=== PATIENT | female | born 1985 | race Caucasian/White ===

== ENCOUNTER 2017-12-16 18:41 | Emergency (ER) | payer SELFPAY ==
[~2017-12-16] VITALS: Ht 167.6 cm; Wt 84.4 kg
[~2017-12-16 18:41] MED LIST: FOLI1TAB4 PO; LORA-392 PO; PROT40TA PO; VITA100T2 PO
[2017-12-16 19:10] VITALS: BP 144/90; PULSE 137; RESP 20; TEMP 98; O2SAT 98
--- NOTE | 2017-12-16 20:43 | PD ---
HPI Chief Complaint: General Weakness Time Seen by Provider: 20:24 Travel History International Travel<30 days: No Contact w/Intl Traveler<30days: No Traveled to known affect area: No History of Present Illness HPI 32yo F with PMH of alcohol abuse, substance induced mood disorder here with c/o pain in her entire body for a few days. Said she can feel me touching her but feels numb all over her body. +Cough. Denies any fever,chest pain, sob, n/v, abdominal pain, focal weakness or numbness. Pt has some old bruises in bilateral lower extremity but does not remember falling. Pt has normal muscle strength and sensation on exam. Said last drank alcohol this morning. PFSH Past Medical History Anxiety: Yes Depression: Yes Cancer: No Cardiovascular Problems: No Diminished Hearing: No Endocrine: No Gastrointestinal Disorders: No Genitourinary: No Immune Disorder: No Musculoskeletal: No Neurologic: No Psychiatric: Yes Reproductive: No Respiratory: No Immunizations Current: No Tetanus Vaccination: < 5 Years Influenza Vaccination: No ?: Not LMP: 12/11/17 Menopausal: No : 0 Ovarian Cysts: Yes Past Surgical History Oral Surgery: Yes (wisdom teeth) Other Surgery: Yes (breast implants) Social History Alcohol Use: Yes (4 times a week ) Tobacco Use: Yes (1/2 pack a day ) Substance Use: Yes (Pot) Allergies-Medications (Allergen,Severity, Reaction): Coded Allergies: No Known Allergies (Verified , 09/28/16) Reported Meds & Prescriptions Reported Meds & Active Scripts Active Tylenol (Acetaminophen) 325 Mg Tab 650 Mg PO Q6H PRN Bactrim DS (Sulfamethoxazole-Trimethoprim) 800-160 Mg Tab 1 Tab PO BID Ativan (Lorazepam) 0.5 Mg Tab 0.5 Mg PO BID PRN Folate (Folic Acid) 1 Mg Tab 1 Mg PO DAILY Vitamin B-1 (Thiamine HCl) 100 Mg Tab 100 Mg PO DAILY Protonix (Pantoprazole Sodium) 40 Mg Tab 40 Mg PO DAILY 10 Days Review of Systems Except as stated in HPI: all other systems reviewed are Neg Physical Exam Narrative GENERAL: 32yo F in mild distress. SKIN: Focused skin assessment warm/dry. HEAD: Atraumatic. Normocephalic. EYES: Pupils equal and round. No scleral icterus. No injection or drainage. ENT: No nasal bleeding or discharge. Mucous membranes pink and moist. NECK: Trachea midline. No JVD. CARDIOVASCULAR: Tachycardic in the low 100s. RESPIRATORY: No accessory muscle use. Clear to auscultation. Breath sounds equal bilaterally. GASTROINTESTINAL: Abdomen soft, non-tender, nondistended. No rebound tenderness or guarding. MUSCULOSKELETAL: No obvious deformities. No clubbing. No cyanosis. No edema. Distal pulses intact. Old ecchymoses in bilateral tib/fib. NEUROLOGICAL: Awake and alert. No obvious cranial nerve deficits. Motor grossly within normal limits in all extremities. Sensation equal in all extremities. Normal speech. Data Data Last Documented VS Vital Signs Date Time Temp Pulse Resp B/P (MAP) Pulse Ox O2 Delivery O2 Flow Rate FiO2 12/17/17 00:23 98.2 97 18 125/79 (94) 98 12/16/17 22:55 Room Air Orders Orders Complete Blood Count With Diff (12/16/17 20:35) Basic Metabolic Panel (Bmp) (12/16/17 20:35) Thyroid Stimulating Hormone (12/16/17 20:35) Electrocardiogram (12/16/17 ) Influenzae A/B Antigen (12/16/17 20:35) Chest, Single Ap (12/16/17 ) Urinalysis - C+S If Indicated (12/16/17 20:35) Ed Urine Pregnancytest Poc (12/16/17 20:35) Urine Culture (12/16/17 20:54) Ceftriaxone Inj (Rocephin Inj) (12/16/17 22:45) Ketorolac Inj (Toradol Inj) (12/16/17 22:45) Sodium Chlor 0.9% 1000 Ml Inj (Ns 1000 M (12/16/17 23:00) Blood Glucose (12/16/17 23:32) Ed Discharge Order (12/16/17 23:33) Labs Laboratory Tests Test 12/16/17 20:45 12/16/17 20:54 White Blood Count 5.7 TH/MM3 Red Blood Count 4.87 MIL/MM3 Hemoglobin 15.5 GM/DL Hematocrit 46.0 % Mean Corpuscular Volume 94.6 FL Mean Corpuscular Hemoglobin 31.8 PG Mean Corpuscular Hemoglobin Concent 33.6 % Red Cell Distribution Width 13.9 % Platelet Count 231 TH/MM3 Mean Platelet Volume 7.3 FL Neutrophils (%) (Auto) 78.5 % Lymphocytes (%) (Auto) 17.4 % Monocytes (%) (Auto) 3.1 % Eosinophils (%) (Auto) 0.2 % Basophils (%) (Auto) 0.8 % Neutrophils # (Auto) 4.5 TH/MM3 Lymphocytes # (Auto) 1.0 TH/MM3 Monocytes # (Auto) 0.2 TH/MM3 Eosinophils # (Auto) 0.0 TH/MM3 Basophils # (Auto) 0.0 TH/MM3 CBC Comment DIFF FINAL Differential Comment Blood Urea Nitrogen 11 MG/DL Creatinine 0.62 MG/DL Random Glucose 66 MG/DL Calcium Level 8.7 MG/DL Sodium Level 138 MEQ/L Potassium Level 4.0 MEQ/L Chloride Level 100 MEQ/L Carbon Dioxide Level 23.0 MEQ/L Anion Gap 15 MEQ/L Estimat Glomerular Filtration Rate 112 ML/MIN Thyroid Stimulating Hormone 3rd Gen 1.260 uIU/ML Urine Color YELLOW Urine Turbidity CLOUDY Urine pH 6.0 Urine Specific [place] 1.015 Urine Protein 300 OR GREATER mg/dL Urine Glucose (UA) NEG mg/dL Urine Ketones 80 OR GREATER mg/dL Urine Occult Blood LARGE Urine Nitrite POS Urine Bilirubin NEG Urine Leukocyte Esterase TRACE Urine RBC 0-3 /hpf Urine WBC 3-5 /hpf Urine Squamous Epithelial Cells 0-5 /hpf Urine Bacteria MANY /hpf Urine Mucus MOD /lpf Microscopic Urinalysis Comment CULTURE INDICATED MDM Medical Decision Making Medical Screen Exam Complete: Yes Emergency Medical Condition: Yes Interpretation(s) EKG; NSR 89bpm. Normal axis. No ST segment elevation or depression. TWI V2. Differential Diagnosis Anxiety vs. dehydration vs. influenza vs. pneumonia vs. alcohol withdrawal Narrative Course 32yo F with multiple complaints. Labs reviewed, no leukocytosis. Glucose 66, pt given food. TSH normal. UA showed positive nitrite. +Ketone. Pt's HR was documented at 137bpm at triage but it was in the low 100s when I evaluated the patient. Urine negative. Influenza negative. Pt given ceftriaxone and NS IVF here. Pt reevaluated at bedside and feels better. Feel that pt can do outpatient treatment first but return precautions given. Diagnosis Primary Impression: UTI (urinary tract infection) Qualified Codes: N39.0 - Urinary tract infection, site not specified; R31.9 - Hematuria, unspecified Patient Instructions: General Instructions Departure Forms: Tests/Procedures Additional Instructions: Please follow up with your primary care physician in 2-3 days. Return to the ED if symptoms worsen. Med/Other Pt SpecificInfo: Prescription(s) given Scripts Acetaminophen (Tylenol) 325 Mg Tab 650 MG PO Q6H Y for PAIN SCALE 1 TO 4, #20 TAB 0 Refills Prov: Svitlana Cohen DO 12/16/17 Sulfamethoxazole-Trimethoprim (Bactrim DS) 800-160 Mg Tab 1 TAB PO BID for Infection, #14 TAB 0 Refills Prov: Svitlana Cohen DO 12/16/17 Disposition: 01 DISCHARGE HOME Condition: Stable Svitlana Cohen DO Dec 16, 2017 20:43
[2017-12-16 20:52] VITALS: BP 135/75; PULSE 108; RESP 18; TEMP 98; O2SAT 100
[2017-12-16 21:04] LABS: AUTOMATED NEUTROPHIL # 4.5 TH/MM3 (1.8-7.7); BASOPHIL % 0.8 % (0.0-2.0); EOSINOPHIL % 0.2 % (0.0-4.0); HEMOGLOBIN 15.5 GM/DL (11.6-15.3); LYMPH % 17.4 % (9.0-44.0); MEAN CELL VOLUME 94.6 FL (80.0-100.0); MEAN CORPUSCULAR HEMOGLOBIN 31.8 PG (27.0-34.0); MEAN CORPUSCULAR HGB CONC 33.6 % (32.0-36.0); MEAN PLATELET VOLUME 7.3 FL (7.0-11.0); MONO % 3.1 % (0.0-8.0); MONOCYTE # 0.2 TH/MM3 (0-0.9); NEUT % 78.5 % (16.0-70.0); PLATELET COUNT 231 TH/MM3 (150-450); RED BLOOD COUNT 4.87 MIL/MM3 (4.00-5.30); RED CELL DISTRIBUTION WIDTH 13.9 % (11.6-17.2); WHITE BLOOD COUNT 5.7 TH/MM3 (4.0-11.0)
[2017-12-16 21:04] LABS: BILIRUBIN, URINE NEG (NEG); BLOOD, URINE LARGE (NEG); GLUCOSE,URINE NEG (NEG); KETONE, URINE 80 OR GREATER mg/dL (NEG); NITRITE,URINE POS (NEG); URINE LEUKOCYTE ESTERASE TRACE (NEG)
[2017-12-16 21:11] LABS: BACTERIA, URINE MANY /hpf; MUCUS URINE MOD /lpf (OCC); RBC, URINE 0-3 /hpf (0-3); SQUAMOUS EPITHELIAL CELL URINE 0-5 /hpf (0-5); URINE COLOR YELLOW (YELLW/STRAW)
[2017-12-16 21:33] LABS: CALCIUM 8.7 MG/DL (8.5-10.1)
[2017-12-16 21:37] LABS: CREATININE 0.62 MG/DL (0.50-1.00)
--- NOTE | 2017-12-16 22:34 | RADRPT ---
EXAM DATE/TIME: 12/16/2017 21:30 [facility] COMPARISON: CHEST SINGLE AP, September 26, 2016, 9:47. INDICATIONS : Cough and bodyaches for 4 days. MEDICAL HISTORY : None. SURGICAL HISTORY : None. ENCOUNTER: Initial ACUITY: 4 - 6 days PAIN SCORE: 4/10 LOCATION: Bilateral chest FINDINGS: A single view of the chest demonstrates the lungs to be symmetrically aerated without evidence of mas s, infiltrate or effusion. The cardiomediastinal contours are unremarkable. Osseous structures are intact. CONCLUSION: 1. No acute cardiopulmonary disease. Petey Ambrose MD on December 16, 2017 at 22:32 Board Certified Radiologist. This report was verified electronically.
[2017-12-16] MEDS ORDERED: KETOROLAC TROMETHAMINE 30 MG/ML (IVP) VIAL IV PUSH ONE (22:45)
[2017-12-16] MEDS ORDERED: cefTRIAXone INJ 1,000 MG in SODIUM CHLORIDE 0.9% INJ 100 ML IV ONE (22:45)
[2017-12-16 22:55] VITALS: BP 140/87; PULSE 104; RESP 18; TEMP 98.4; O2SAT 100
[2017-12-16] MEDS ORDERED: SODIUM CHLOR 0.9% 1000 ML INJ 1,000 ML IV ONE (23:00)
[2017-12-16] MEDS ORDERED: TYLE325T PO (23:32)
[2017-12-16] MEDS ORDERED: BACT800T5 PO (23:32)
[2017-12-17 00:23] VITALS: BP 125/79; TEMP 98.2
--- NOTE | 2017-12-17 07:59 | EKG ---
Date Performed: 12/16/2017 Time Performed: 20:47:26 PTAGE: 32 years EKG: Sinus rhythm WITH SINUS ARRHYTHMIA NORMAL ECG PREVIOUS TRACING : 06/15/2015 15.57 DOCTOR: Tor Louie Interpretating Date/Time 12/17/2017 07:55:18
== END 2017-12-17 00:24 | disposition home or self-care (01) ==
LOC: PHED 18:41
DX: N39.0 Urinary tract infection, site not specified (principal); R31.9 Hematuria, unspecified; B96.20 Unspecified Escherichia coli [E. coli] as the cause of diseases classified elsewhere; I49.9 Cardiac arrhythmia, unspecified; M79.1 Myalgia; R20.0 Anesthesia of skin; R05 Cough; F41.8 Other specified anxiety disorders; F17.200 Nicotine dependence, unspecified, uncomplicated
CPT/HCPCS: 71045; 80048; 81001; 84443; 84703; 85025; 87077; 87086; 87186; 87804; 93005; 96374; 96375; 99285; J0696; J1885; J7030

== ENCOUNTER 2017-12-19 20:51 | Emergency (ER) | payer SELFPAY ==
[~2017-12-19] VITALS: Ht 170.2 cm; Wt 84.0 kg
[~2017-12-19 20:51] MED LIST changes: +BACT800T5 PO; +TYLE325T PO
[2017-12-19 21:48] VITALS: BP 132/95; PULSE 110; RESP 18; TEMP 98.6; O2SAT 99
[2017-12-19 23:20] VITALS: BP 128/88; PULSE 74; RESP 16; O2SAT 100
[2017-12-19] MEDS ORDERED: LORA1TAB12 PO (23:44)
--- NOTE | 2017-12-19 23:44 | PD ---
HPI Chief Complaint: Medical Clearance Time Seen by Provider: 23:28 Travel History International Travel<30 days: Yes Contact w/Intl Traveler<30days: Yes Traveled to known affect area: Yes History of Present Illness HPI The patient is a 32-year-old female, alcoholic who last drink was 24 hours ago. She complains of shakiness and body tingling. She denies any nausea, vomiting or abdominal pain. She denies any fever. The patient saw a black swirl and heard some voices but otherwise she has had minimal visual and auditory hallucinations. The patient admits to drinking a vodka bottle every 3 days. She is hoping to quit alcohol. The patient states he quit alcohol when she started the antibiotic Septra for her urinary tract infection. She feels that it might be the Septra. PFSH Past Medical History Anxiety: Yes Depression: Yes Cancer: No Cardiovascular Problems: No Diminished Hearing: No Endocrine: No Gastrointestinal Disorders: No Genitourinary: No Immune Disorder: No Musculoskeletal: No Neurologic: No Psychiatric: Yes Reproductive: No Respiratory: No Immunizations Current: No Menopausal: No : 0 Ovarian Cysts: Yes Past Surgical History Oral Surgery: Yes (wisdom teeth) Other Surgery: Yes (breast implants) Social History Alcohol Use: Yes (4 times a week ) Tobacco Use: Yes (1/2 pack a day ) Substance Use: Yes (Pot) Allergies-Medications (Allergen,Severity, Reaction): Coded Allergies: No Known Allergies (Verified , 09/28/16) Reported Meds & Prescriptions Reported Meds & Active Scripts Active Tylenol (Acetaminophen) 325 Mg Tab 650 Mg PO Q6H PRN Bactrim DS (Sulfamethoxazole-Trimethoprim) 800-160 Mg Tab 1 Tab PO BID Ativan (Lorazepam) 0.5 Mg Tab 0.5 Mg PO BID PRN Folate (Folic Acid) 1 Mg Tab 1 Mg PO DAILY Vitamin B-1 (Thiamine HCl) 100 Mg Tab 100 Mg PO DAILY Protonix (Pantoprazole Sodium) 40 Mg Tab 40 Mg PO DAILY 10 Days Review of Systems Except as stated in HPI: all other systems reviewed are Neg Physical Exam Narrative GENERAL: Well-nourished, well-developed patient who does not smell at all of alcohol and does exhibit a tremor consistent with alcohol withdrawal. Her vital signs show heart rate of 110, blood pressure 132/95 but are otherwise normal. SKIN: Focused skin assessment warm/dry. HEAD: Normocephalic. EYES: No scleral icterus. No injection or drainage. NECK: Supple, trachea midline. No JVD or lymphadenopathy. CARDIOVASCULAR: Regular rate and rhythm without murmurs, gallops, or rubs. RESPIRATORY: Breath sounds equal bilaterally. No accessory muscle use. Lungs clear to auscultation bilaterally. GASTROINTESTINAL: Abdomen soft, non-tender, nondistended. The liver is not directly tender and not particularly enlarged. The abdomen shows only minimal discomfort with deep palpation. No guarding or rebound is present. MUSCULOSKELETAL: No cyanosis, or edema. BACK: Nontender without obvious deformity. No CVA tenderness. Data Data Last Documented VS Vital Signs Date Time Temp Pulse Resp B/P (MAP) Pulse Ox O2 Delivery O2 Flow Rate FiO2 12/19/17 21:48 98.6 110 18 132/95 (107) 99 MDM Medical Decision Making Medical Screen Exam Complete: Yes Emergency Medical Condition: Yes Medical Record Reviewed: Yes Differential Diagnosis Alcohol withdrawal, other drug withdrawal, Septra side effect Narrative Course The patient's symptoms do not appear as a Septra side effect. Her symptoms appear as mild alcohol withdrawal. Plan: The patient be given Librium, #21 she is told not to drink alcohol or drive on the Librium. Additional Instructions: This is very encouraging to see you quit alcohol. This could definitely change her life for the better If you're successful. Med/Other Pt SpecificInfo: Prescription(s) given Scripts Lorazepam (Lorazepam) 1 Mg Tab 1 MG PO Q4H Y for for severe anxiety or dyspnea, #30 TAB 0 Refills Prov: Tenzin Brenner MD 12/19/17 Disposition: 01 DISCHARGE HOME Condition: Stable Tenzin Brenner MD Dec 19, 2017 23:44
[2017-12-19] MEDS ORDERED: LORazepam 2 MG TAB PO ONE (23:45)
== END 2017-12-20 00:13 | disposition home or self-care (01) ==
LOC: PHED 20:51
DX: F10.239 Alcohol dependence with withdrawal, unspecified (principal); F41.9 Anxiety disorder, unspecified; F32.9 Major depressive disorder, single episode, unspecified; F17.200 Nicotine dependence, unspecified, uncomplicated; N83.209 Unspecified ovarian cyst, unspecified side; F12.90 Cannabis use, unspecified, uncomplicated
CPT/HCPCS: 99283

== ENCOUNTER 2018-02-18 05:58 | Emergency (ER) | payer SELFPAY ==
[~2018-02-18] VITALS: Ht 170.2 cm; Wt 79.3 kg
[~2018-02-18 05:58] MED LIST changes: -FOLI1TAB4 PO; -LORA-392 PO; -PROT40TA PO; -TYLE325T PO; -VITA100T2 PO
[2018-02-18 06:01] VITALS: BP 132/99; PULSE 102; RESP 18; TEMP 97.7; O2SAT 97
[2018-02-18] MEDS ORDERED: ONDANSETRON HCL 4 MG/2 ML VIAL IV PUSH ONE ×2 (06:15→10:00)
[2018-02-18] MEDS ORDERED: SODIUM CHLOR 0.9% 1000 ML INJ 1,000 ML IV ONE (06:15)
[2018-02-18 06:18] VITALS: O2SAT 97
--- NOTE | 2018-02-18 06:19 | PD ---
HPI Chief Complaint: Alcohol/Drug Intoxication Time Seen by Provider: 06:06 Travel History International Travel<30 days: No Contact w/Intl Traveler<30days: No Traveled to known affect area: No History of Present Illness HPI 32-year-old female complains of nausea and feeling shaky. Patient states that she drinks alcohol daily. Last drink was 5 hours prior to arrival. Patient states that she is feeling shaky and persistent nausea. Patient denies any headache. Patient denies any chest pain or shortness of breath. Patient denies abdominal pain. Patient denies any dysuria frequency. PFSH Past Medical History Anxiety: Yes Depression: Yes Cancer: No Cardiovascular Problems: No Diminished Hearing: No Endocrine: No Gastrointestinal Disorders: No Genitourinary: No Immune Disorder: No Implanted Vascular Access Dvce: No Musculoskeletal: No Neurologic: No Psychiatric: Yes Reproductive: No Respiratory: No Immunizations Current: No ?: Not LMP: 01/25/18 Menopausal: No : 0 Ovarian Cysts: Yes Past Surgical History Oral Surgery: Yes (wisdom teeth) Other Surgery: Yes (breast implants) Social History Alcohol Use: Yes (STOPPED 12/17) Tobacco Use: Yes (1/2 pack a day ) Substance Use: Yes (Pot) Allergies-Medications (Allergen,Severity, Reaction): Coded Allergies: No Known Allergies (Verified Adverse Reaction, Unknown, 02/18/18) Reported Meds & Prescriptions Reported Meds & Active Scripts Active No Active Prescriptions or Reported Medications Review of Systems General / Constitutional: No: Fever Eyes: No: Visual changes HENT: No: Headaches Cardiovascular: No: Chest Pain or Discomfort Respiratory: No: Shortness of Breath Gastrointestinal: Positive: Nausea, No: Abdominal Pain Genitourinary: No: Dysuria Musculoskeletal: No: Pain Skin: No Rash Neurologic: No: Weakness Psychiatric: No: Depression Endocrine: No: Polydipsia Hematologic/Lymphatic: No: Easy Bruising Physical Exam Narrative GENERAL: Well-nourished, well-developed patient. SKIN: Focused skin assessment warm/dry. HEAD: Normocephalic. EYES: No scleral icterus. No injection or drainage. NECK: Supple, trachea midline. No JVD or lymphadenopathy. CARDIOVASCULAR: Regular rate and rhythm without murmurs, gallops, or rubs. RESPIRATORY: Breath sounds equal bilaterally. No accessory muscle use. GASTROINTESTINAL: Abdomen soft, non-tender, nondistended. MUSCULOSKELETAL: No cyanosis, or edema. BACK: Nontender without obvious deformity. No CVA tenderness. Neurologic exam: patient is awake and alert oriented 3. Patient moves all extremity well. No obvious focal neurological deficit. Data Data Last Documented VS Vital Signs Date Time Temp Pulse Resp B/P (MAP) Pulse Ox O2 Delivery O2 Flow Rate FiO2 02/18/18 06:01 97.7 102 18 132/99 (110) 97 Orders Orders Complete Blood Count With Diff (02/18/18 06:14) Comprehensive Metabolic Panel (02/18/18 06:14) Lipase (02/18/18 06:14) Iv Access Insert/Monitor (02/18/18 06:14) Ecg Monitoring (02/18/18 06:14) Oximetry (02/18/18 06:14) Alcohol (Ethanol) (02/18/18 06:14) Ns (Bolus) Inj (02/18/18 06:15) Ondansetron Inj (Zofran Inj) (02/18/18 06:15) MDM Medical Decision Making Medical Screen Exam Complete: Yes Emergency Medical Condition: Yes Differential Diagnosis Differential diagnosis including alcohol intoxication, electrolyte imbalance, gastritis, pancreatitis, colitis, UTI, pyelonephritis. Narrative Course 32-year-old female with history of alcohol abuse complains of feeling shaky and nausea. Normal saline solution 1 L IV bolus. Zofran 4 mg IV. Thiamine 100 mg IV. Scripts No Active Prescriptions or Reported Meds Mauricio Kate MD Feb 18, 2018 06:19
[2018-02-18] MEDS ORDERED: THIAMINE INJ 100 MG in SODIUM CHLORIDE 0.9% INJ 100 ML IV ONE (06:30)
[2018-02-18 06:35] LABS: AUTOMATED NEUTROPHIL # 6.6 TH/MM3 (1.8-7.7); BASOPHIL % 0.6 % (0.0-2.0); EOSINOPHIL % 0.1 % (0.0-4.0); HEMOGLOBIN 15.5 GM/DL (11.6-15.3); LYMPH % 15.4 % (9.0-44.0); LYMPHOCYTE # 1.2 TH/MM3 (1.0-4.8); MEAN CELL VOLUME 94.1 FL (80.0-100.0); MEAN CORPUSCULAR HEMOGLOBIN 32.4 PG (27.0-34.0); MEAN CORPUSCULAR HGB CONC 34.4 % (32.0-36.0); MEAN PLATELET VOLUME 7.3 FL (7.0-11.0); MONO % 3.2 % (0.0-8.0); MONOCYTE # 0.3 TH/MM3 (0-0.9); NEUT % 80.7 % (16.0-70.0); PLATELET COUNT 293 TH/MM3 (150-450); RED BLOOD COUNT 4.78 MIL/MM3 (4.00-5.30); RED CELL DISTRIBUTION WIDTH 15.1 % (11.6-17.2); WHITE BLOOD COUNT 8.1 TH/MM3 (4.0-11.0)
[2018-02-18 06:41] LABS: CHLORIDE 99 MEQ/L (98-107); SODIUM (NA) 140 MEQ/L (136-145)
[2018-02-18 06:45] LABS: ALBUMIN 3.9 GM/DL (3.4-5.0); BICARBONATE 28.1 MEQ/L (21.0-32.0); CALCIUM 8.7 MG/DL (8.5-10.1); GLUCOSE,RANDOM 120 MG/DL (74-106)
[2018-02-18 06:46] LABS: BLOOD UREA NITROGEN 10 MG/DL (7-18)
[2018-02-18 06:48] LABS: ALT (GPT) 28 U/L (10-53); AST (GOT) 27 U/L (15-37); CREATININE 0.71 MG/DL (0.50-1.00); GLOMERULAR FILTRATION RATE 95 ML/MIN (>89)
[2018-02-18 06:50] LABS: TOTAL BILIRUBIN ADULT 0.5 MG/DL (0.2-1.0)
[2018-02-18 06:51] LABS: ALKALINE PHOSPHATASE 62 U/L (45-117)
[2018-02-18 07:15] VITALS: BP 103/93; PULSE 90; RESP 16; O2SAT 99
[2018-02-18] MEDS ORDERED: NS + KCL 20 MEQ INJ 1,000 ML IV ONE (07:15)
[2018-02-18] MEDS ORDERED: LORazepam 2 MG/ML VIAL IV PUSH ONE (07:30)
[2018-02-18 08:30] VITALS: BP 136/85; PULSE 87; RESP 16; O2SAT 98
[2018-02-18] MEDS ORDERED: PROMETHAZINE INJ 25 MG/ML VIAL IM ONE (09:00)
[2018-02-18] MEDS ORDERED: PANTOPRAZOLE SODIUM 40 MG VIAL IV PUSH ONE (09:15)
--- NOTE | 2018-02-18 09:22 | PD ---
Physical Exam Date Seen by Provider: Feb 18, 2018 Time Seen by Provider: 09:19 Narrative 32-year-old female who presented with complaint vomiting. She is a heavy drinker and had been drinking when her vomiting started. Was seen by Dr. Kate who has ordered lab work and IV fluids. She has received Zofran. She was complaining of ongoing nausea and has been given additional Ativan and Phenergan and Protonix. Data Data Last Documented VS Vital Signs Date Time Temp Pulse Resp B/P (MAP) Pulse Ox O2 Delivery O2 Flow Rate FiO2 02/18/18 11:23 02/18/18 09:34 95 16 99 Room Air 02/18/18 06:01 97.7 Orders Orders Complete Blood Count With Diff (02/18/18 06:14) Comprehensive Metabolic Panel (02/18/18 06:14) Lipase (02/18/18 06:14) Iv Access Insert/Monitor (02/18/18 06:14) Ecg Monitoring (02/18/18 06:14) Oximetry (02/18/18 06:14) Alcohol (Ethanol) (02/18/18 06:14) Sodium Chlor 0.9% 1000 Ml Inj (Ns 1000 M (02/18/18 06:15) Ondansetron Inj (Zofran Inj) (02/18/18 06:15) Thiamine Inj (Thiamine Inj) (02/18/18 06:30) Ns + Kcl 20 Meq Inj (Ns + Kcl 20 Meq Inj (02/18/18 07:15) Lorazepam Inj (Ativan Inj) (02/18/18 07:30) Promethazine Inj (Phenergan Inj) (02/18/18 09:00) Pantoprazole Inj (Protonix Inj) (02/18/18 09:15) Ondansetron Inj (Zofran Inj) (02/18/18 10:00) Ed Discharge Order (02/18/18 10:36) Labs Laboratory Tests Test 02/18/18 06:25 White Blood Count 8.1 TH/MM3 Red Blood Count 4.78 MIL/MM3 Hemoglobin 15.5 GM/DL Hematocrit 45.0 % Mean Corpuscular Volume 94.1 FL Mean Corpuscular Hemoglobin 32.4 PG Mean Corpuscular Hemoglobin Concent 34.4 % Red Cell Distribution Width 15.1 % Platelet Count 293 TH/MM3 Mean Platelet Volume 7.3 FL Neutrophils (%) (Auto) 80.7 % Lymphocytes (%) (Auto) 15.4 % Monocytes (%) (Auto) 3.2 % Eosinophils (%) (Auto) 0.1 % Basophils (%) (Auto) 0.6 % Neutrophils # (Auto) 6.6 TH/MM3 Lymphocytes # (Auto) 1.2 TH/MM3 Monocytes # (Auto) 0.3 TH/MM3 Eosinophils # (Auto) 0.0 TH/MM3 Basophils # (Auto) 0.0 TH/MM3 CBC Comment DIFF FINAL Differential Comment Blood Urea Nitrogen 10 MG/DL Creatinine 0.71 MG/DL Random Glucose 120 MG/DL Total Protein 8.0 GM/DL Albumin 3.9 GM/DL Calcium Level 8.7 MG/DL Alkaline Phosphatase 62 U/L Aspartate Amino Transf (AST/SGOT) 27 U/L Alanine Aminotransferase (ALT/SGPT) 28 U/L Total Bilirubin 0.5 MG/DL Sodium Level 140 MEQ/L Potassium Level 3.5 MEQ/L Chloride Level 99 MEQ/L Carbon Dioxide Level 28.1 MEQ/L Anion Gap 13 MEQ/L Estimat Glomerular Filtration Rate 95 ML/MIN Lipase 112 U/L Ethyl Alcohol Level 164 MG/DL [facility] Medical Record Reviewed: Yes Supervised Visit with CAS: No Differential Diagnosis Differential includes pancreatitis, gastritis Narrative Course Lipase is normal. Patient was given IV fluids and symptomatic treatment. She is stable for discharge Diagnosis Primary Impression: Acute gastritis Scripts Ondansetron Odt (Zofran Odt) 4 Mg Tab 4 MG SL Q6HR Y for Nausea/Vomiting, #10 TAB 0 Refills Prov: Fan Starr MD 02/18/18 Disposition: DISCHARGE HOME Condition: Stable Fan Starr MD Feb 18, 2018 09:22
[2018-02-18 09:34] VITALS: BP 139/89; PULSE 95; RESP 16; O2SAT 99
[2018-02-18] MEDS ORDERED: ZOFR4TAB3 SL (10:34)
== END 2018-02-18 11:26 | disposition home or self-care (01) ==
LOC: PHED 05:58
DX: K29.00 Acute gastritis without bleeding (principal); F17.200 Nicotine dependence, unspecified, uncomplicated; F10.10 Alcohol abuse, uncomplicated; Y90.6 Blood alcohol level of 120-199 mg/100 ml
CPT/HCPCS: 80053; 80307; 83690; 85025; 96361; 96365; 96366; 96367; 96375; 96376; 99284; C9113; J2060; J2405; J2550; J3411; J3480; J7030

== ENCOUNTER 2018-04-18 19:06 | Inpatient (IN) | payer SELFPAY ==
[~2018-04-18] VITALS: Ht 165.1 cm; Wt 85.0 kg
[2018-04-18] VITALS (7 sets, daily range): BP systolic 117–160; BP diastolic 71–96; PULSE 120–143; RESP 18–20; TEMP 98.4; O2SAT 97–100
[~2018-04-18 19:06] MED LIST changes: -BACT800T5 PO; +ZOFR4TAB3 SL
--- NOTE | 2018-04-18 19:26 | PD ---
HPI Chief Complaint: Alcohol/Drug Intoxication Time Seen by Provider: 19:19 Travel History International Travel<30 days: No Contact w/Intl Traveler<30days: No Traveled to known affect area: No History of Present Illness HPI 33-year-old female is brought to the emergency department by her mother for evaluation. Patient has a long-standing history of alcohol dependency. She has been binge drinking over the last week. She is consume 15 bottles of vodka. Patient states that she wants to drink herself to however patient has been drinking all day. Her mother states that she gets this way of her relationships with men. The patient denies any other medical history. Denies any other substance abuse. Denies any chance of . She has no other symptoms to report. Mom states that she did take her to [facility]3], however there are no beds so they decided to come here. PFSH Past Medical History Anxiety: Yes Depression: Yes Cancer: No Cardiovascular Problems: No Diminished Hearing: No Endocrine: No Gastrointestinal Disorders: No Genitourinary: No Immune Disorder: No Implanted Vascular Access Dvce: No Musculoskeletal: No Neurologic: No Psychiatric: Yes Reproductive: No Respiratory: No Immunizations Current: No Menopausal: No : 0 Ovarian Cysts: Yes Past Surgical History Oral Surgery: Yes (wisdom teeth) Other Surgery: Yes (breast implants) Social History Alcohol Use: Yes Tobacco Use: Yes (1/2 pack a day ) Substance Use: Yes (Pot) Allergies-Medications (Allergen,Severity, Reaction): Coded Allergies: No Known Allergies (Verified Adverse Reaction, Unknown, 04/18/18) Reported Meds & Prescriptions Reported Meds & Active Scripts Active No Active Prescriptions or Reported Medications Review of Systems ROS Limitations: Intoxication Except as stated in HPI: all other systems reviewed are Neg Physical Exam Exam Limitations: Intoxication Narrative GENERAL: Well-nourished female patient, clinically intoxicated, with slurred speech, no acute distress. SKIN: Focused skin assessment warm/dry. HEAD: Atraumatic. Normocephalic. EYES: Pupils equal and round. No scleral icterus. No injection or drainage. ENT: No nasal bleeding or discharge. Mucous membranes pink and moist. NECK: Trachea midline. No JVD. CARDIOVASCULAR: Tachycardic rate and rhythm. No murmur appreciated. RESPIRATORY: No accessory muscle use. Clear to auscultation. Breath sounds equal bilaterally. GASTROINTESTINAL: Abdomen soft, non-tender, nondistended. Hepatic and splenic margins not palpable. MUSCULOSKELETAL: No obvious deformities. No clubbing. No cyanosis. No edema. NEUROLOGICAL: Awake and alert. No obvious cranial nerve deficits. Motor grossly within normal limits. Normal speech. Data Data Last Documented VS Vital Signs Date Time Temp Pulse Resp B/P (MAP) Pulse Ox O2 Delivery O2 Flow Rate FiO2 04/18/18 22:13 120 18 117/78 (91) 98 Room Air 04/18/18 19:13 98.4 Orders Orders Complete Blood Count With Diff (04/18/18 19:24) Comprehensive Metabolic Panel (04/18/18 19:24) Thyroid Stimulating Hormone (04/18/18 19:24) Ed Urine Pregnancytest Poc (04/18/18 19:24) Oximetry (04/18/18 19:24) Iv Access Insert/Monitor (04/18/18 19:24) Ecg Monitoring (04/18/18 19:24) Psych Screen (04/18/18 19:24) Drug Screen, Random Urine (04/18/18 19:24) Alcohol (Ethanol) (04/18/18 19:24) Salicylates (Aspirin) (04/18/18 19:24) Tylenol (Acetaminophen) (04/18/18 19:24) Sodium Chlor 0.9% 1000 Ml Inj (Ns 1000 M (04/18/18 19:30) Electrocardiogram (04/18/18 ) Lipase (04/18/18 19:26) Diet Regular Basic (04/19/18 Breakfast) Alcohol Withdrawal Asmt-Ciwa ONCE (04/18/18 20:27) Ondansetron Odt (Zofran Odt) (04/18/18 20:30) Ibuprofen (Motrin) (04/18/18 20:30) Flumazenil Inj (Romazicon Inj) (04/18/18 20:30) Lorazepam (Ativan) (04/18/18 20:30) Lorazepam Inj (Ativan Inj) (04/18/18 20:30) Lorazepam (Ativan) (04/18/18 20:30) Lorazepam Inj (Ativan Inj) (04/18/18 20:30) Lorazepam Inj (Ativan Inj) (04/18/18 20:30) Lorazepam Inj (Ativan Inj) (04/18/18 20:30) Sodium Chlor 0.9% 1000 Ml Inj (Ns 1000 M (04/18/18 21:45) Labs Laboratory Tests Test 04/18/18 19:44 White Blood Count 8.9 TH/MM3 Red Blood Count 5.00 MIL/MM3 Hemoglobin 16.2 GM/DL Hematocrit 48.3 % Mean Corpuscular Volume 96.7 FL Mean Corpuscular Hemoglobin 32.5 PG Mean Corpuscular Hemoglobin Concent 33.5 % Red Cell Distribution Width 14.0 % Platelet Count 131 TH/MM3 Mean Platelet Volume 8.2 FL Neutrophils (%) (Auto) 90.3 % Lymphocytes (%) (Auto) 4.7 % Monocytes (%) (Auto) 4.2 % Eosinophils (%) (Auto) 0.0 % Basophils (%) (Auto) 0.8 % Neutrophils # (Auto) 8.0 TH/MM3 Lymphocytes # (Auto) 0.4 TH/MM3 Monocytes # (Auto) 0.4 TH/MM3 Eosinophils # (Auto) 0.0 TH/MM3 Basophils # (Auto) 0.1 TH/MM3 CBC Comment DIFF FINAL Differential Comment Blood Urea Nitrogen 12 MG/DL Creatinine 0.78 MG/DL Random Glucose 88 MG/DL Total Protein 8.2 GM/DL Albumin 4.3 GM/DL Calcium Level 9.4 MG/DL Alkaline Phosphatase 70 U/L Aspartate Amino Transf (AST/SGOT) 84 U/L Alanine Aminotransferase (ALT/SGPT) 47 U/L Total Bilirubin 0.7 MG/DL Sodium Level 138 MEQ/L Potassium Level 4.4 MEQ/L Chloride Level 98 MEQ/L Carbon Dioxide Level 19.5 MEQ/L Anion Gap 21 MEQ/L Estimat Glomerular Filtration Rate 85 ML/MIN Lipase 170 U/L Thyroid Stimulating Hormone 3rd Gen 0.956 uIU/ML Salicylates Level LESS THAN 1.7 MG/DL Acetaminophen Level LESS THAN 2.0 MCG/ML Ethyl Alcohol Level 131 MG/DL [facility] Medical Decision Making Medical Screen Exam Complete: Yes Emergency Medical Condition: Yes Medical Record Reviewed: Yes Differential Diagnosis Intoxication versus substance induced mood disorder versus polysubstance abuse versus dehydration versus electrolyte abnormality Narrative Course 33-year-old female presents emergency department for evaluation after a reported week long alcohol binge. Patient is clinically intoxicated. She states she has been drinking all day. Mom believes her last drink was this morning however. She is tachycardic. Patient does say that she wants to drink herself to , however she is intoxicated. She is under [place] act at this time. Laboratory Tests Test 04/18/18 19:44 White Blood Count 8.9 TH/MM3 Red Blood Count 5.00 MIL/MM3 Hemoglobin 16.2 GM/DL Hematocrit 48.3 % Mean Corpuscular Volume 96.7 FL Mean Corpuscular Hemoglobin 32.5 PG Mean Corpuscular Hemoglobin Concent 33.5 % Red Cell Distribution Width 14.0 % Platelet Count 131 TH/MM3 Mean Platelet Volume 8.2 FL Neutrophils (%) (Auto) 90.3 % Lymphocytes (%) (Auto) 4.7 % Monocytes (%) (Auto) 4.2 % Eosinophils (%) (Auto) 0.0 % Basophils (%) (Auto) 0.8 % Neutrophils # (Auto) 8.0 TH/MM3 Lymphocytes # (Auto) 0.4 TH/MM3 Monocytes # (Auto) 0.4 TH/MM3 Eosinophils # (Auto) 0.0 TH/MM3 Basophils # (Auto) 0.1 TH/MM3 CBC Comment DIFF FINAL Differential Comment Blood Urea Nitrogen 12 MG/DL Creatinine 0.78 MG/DL Random Glucose 88 MG/DL Total Protein 8.2 GM/DL Albumin 4.3 GM/DL Calcium Level 9.4 MG/DL Alkaline Phosphatase 70 U/L Aspartate Amino Transf (AST/SGOT) 84 U/L Alanine Aminotransferase (ALT/SGPT) 47 U/L Total Bilirubin 0.7 MG/DL Sodium Level 138 MEQ/L Potassium Level 4.4 MEQ/L Chloride Level 98 MEQ/L Carbon Dioxide Level 19.5 MEQ/L Anion Gap 21 MEQ/L Estimat Glomerular Filtration Rate 85 ML/MIN Lipase 170 U/L Thyroid Stimulating Hormone 3rd Gen 0.956 uIU/ML Salicylates Level LESS THAN 1.7 MG/DL Acetaminophen Level LESS THAN 2.0 MCG/ML Ethyl Alcohol Level 131 MG/DL Lab work is reviewed and without acute concern. Patient does have EtOH of 131. CIWA protocol is initiated. Patient will be observed on the monitor until morning. At that time she will be reevaluated and disposition appropriately by my attending physician. Diagnosis Primary Impression: Alcohol dependence, binge pattern Scripts No Active Prescriptions or Reported Meds Condition: Stable Marnie Mendez Apr 18, 2018 19:25
[2018-04-18] MEDS ORDERED: SODIUM CHLOR 0.9% 1000 ML INJ 1,000 ML IV ONE ×2 (19:30→21:45)
[2018-04-18 20:07] LABS: BASOPHIL # 0.1 TH/MM3 (0-0.2); BASOPHIL % 0.8 % (0.0-2.0); HEMATOCRIT 48.3 % (35.0-46.0); HEMOGLOBIN 16.2 GM/DL (11.6-15.3); LYMPH % 4.7 % (9.0-44.0); LYMPHOCYTE # 0.4 TH/MM3 (1.0-4.8); MEAN CELL VOLUME 96.7 FL (80.0-100.0); MEAN CORPUSCULAR HEMOGLOBIN 32.5 PG (27.0-34.0); MEAN CORPUSCULAR HGB CONC 33.5 % (32.0-36.0); MEAN PLATELET VOLUME 8.2 FL (7.0-11.0); MONO % 4.2 % (0.0-8.0); MONOCYTE # 0.4 TH/MM3 (0-0.9); NEUT % 90.3 % (16.0-70.0); PLATELET COUNT 131 TH/MM3 (150-450); WHITE BLOOD COUNT 8.9 TH/MM3 (4.0-11.0)
[2018-04-18] MEDS ORDERED: LORazepam 2 MG TAB PO PRN (20:30)
[2018-04-18] MEDS ORDERED: FLUMAZENIL 0.5 MG/5 ML VIAL IV PUSH PRN (20:30)
[2018-04-18] MEDS ORDERED: LORazepam 2 MG/ML VIAL IV PUSH PRN ×3 (20:30)
[2018-04-18] MEDS ORDERED: LORazepam 1 MG TAB PO PRN (20:30)
[2018-04-18] MEDS ORDERED: IBUPROFEN 600 MG TAB PO PRN (20:30)
[2018-04-18] MEDS: ONDANSETRON ODT 4 MG TAB PO PRN (20:39)
[2018-04-18 20:55] LABS: ALBUMIN 4.3 GM/DL (3.4-5.0); AST (GOT) 84 U/L (15-37); BICARBONATE 19.5 MEQ/L (21.0-32.0); BLOOD UREA NITROGEN 12 MG/DL (7-18); CALCIUM 9.4 MG/DL (8.5-10.1); CHLORIDE 98 MEQ/L (98-107); CREATININE 0.78 MG/DL (0.50-1.00); GLOMERULAR FILTRATION RATE 85 ML/MIN (>89); GLUCOSE,RANDOM 88 MG/DL (74-106); SODIUM (NA) 138 MEQ/L (136-145)
[2018-04-18 21:07] LABS: ALKALINE PHOSPHATASE 70 U/L (45-117); ALT (GPT) 47 U/L (10-53); TOTAL BILIRUBIN ADULT 0.7 MG/DL (0.2-1.0); TOTAL PROTEIN 8.2 GM/DL (6.4-8.2)
[2018-04-18 21:21] LABS: ACETAMINOPHEN LESS THAN 2.0 MCG/ML (10.0-30.0)
[2018-04-18] MEDS ORDERED: LORazepam 2 MG/ML VIAL IV PUSH ONE (23:45)
[2018-04-18] MEDS: LORazepam 2 MG/ML VIAL IV PUSH PRN (23:46)
[2018-04-19] VITALS (18 sets, daily range): BP systolic 120–138; BP diastolic 68–94; PULSE 90–130; RESP 16–22; TEMP 98–99.1; O2SAT 91–99
--- NOTE | 2018-04-19 00:38 | HHI.HP ---
[facility] Service Critical Care Medicine Primary Care Physician No Primary Care Physician Admission Diagnosis alcohol withdrawl Diagnosis: Travel History International Travel<30 Days: No Contact w/Intl Traveler <30 Da: No Traveled to Known Affected Are: No History of Present Illness 33-year-old female is brought by her mother for evaluation. Patient has a long- standing history of alcohol dependency. She has been binge drinking over the last week. She is consume 15 bottles of vodka. Patient states that she wants to drink herself to however patient has not been drinking all day. Her mother states that she gets this way of her relationships with men. The patient denies any other medical history. Denies any other substance abuse. She has no other symptoms to report. Per chart review her mom tried to take her to [facility], and because of the high risk of development of severe DTs the patient is admitted to ICU.. Review of Systems Constitutional: COMPLAINS OF: Diaphoretic episodes, Dizziness, DENIES: Fatigue , Fever, Weight gain, Weight loss, Chills, Change in appetite, Night Sweats Endocrine: DENIES: Abnorml menstrual pattern, Heat/cold intolerance, Polydipsia , Polyuria, Polyphagia Eyes: DENIES: Blurred vision, Diplopia, Eye inflammation, Eye pain, Vision loss , Photosensitivity, Double Vision Ears, nose, mouth, throat: DENIES: Tinnitus, Hearing loss, Vertigo, Nasal discharge, Oral lesions, Throat pain, Hoarseness, Ear Pain, Running Nose, Epistaxis, Sinus Pain, Toothache, Odynophagia Respiratory: DENIES: Apneas, Cough, Snoring, Wheezing, Hemoptysis, Sputum production, Shortness of breath Cardiovascular: DENIES: Chest pain, Palpitations, Syncope, Dyspnea on Exertion , PND, Lower Extremity Edema, Orthopnea, Claudication Gastrointestinal: DENIES: Abdominal pain, Black stools, Bloody stools, Constipation, Diarrhea, Nausea, Vomiting, Difficulty Swallowing, Anorexia Genitourinary: DENIES: Abnormal vaginal bleeding, Dysmenorrhea, Dyspareunia, Sexual dysfunction, Urinary frequency, Urinary incontinence, Urgency, Hematuria , Dysuria, Nocturia, Vaginal discharge Musculoskeletal: DENIES: Joint pain, Muscle aches, Stiffness, Joint Swelling, Back pain, Neck pain Integumentary: DENIES: Abnormal pigmentation, Pruritus, Rash, Nail changes, Breast masses, Breast skin changes, Nipple discharge Hematologic/lymphatic: DENIES: Bruising, Lymphadenopathy Immunologic/allergic: DENIES: Eczema, Urticaria Neurologic: DENIES: Abnormal gait, Headache, Localized weakness, Paresthesias, Seizures, Speech Problems, Tremor, Poor Balance Psychiatric: COMPLAINS OF: Anxiety, Confusion, Depression, DENIES: Mood changes , Hallucinations, Agitation, Suicidal Ideation, Homicidal Ideation, Delusions Past Family Social History Allergies: Coded Allergies: No Known Allergies (Verified Adverse Reaction, Unknown, 04/18/18) Past Medical History Anxiety Alcohol dependency Past Surgical History [place] teeth removal Breast implant Reported Medications Reported Meds & Active Scripts Active No Active Prescriptions or Reported Medications Active Ordered Medications Current Medications Medications (Trade) Dose Ordered Sig/Edelmira Route PRN Reason Start Time Stop Time Status Last Admin Dose Admin Ondansetron HCl (Zofran Odt) 4 mg Q8H PRN PO NAUSEA OR VOMITING 04/18/18 20:30 04/19/18 00:51 Ibuprofen (Motrin) 600 mg Q8H PRN PO PAIN SCALE 6 TO 10 04/18/18 20:30 04/18/18 20:41 Sodium Chloride 1,000 ml @ 84 mls/hr [id number] IV 04/19/18 00:32 04/19/18 00:51 Sodium Chloride (NS Flush) 2 ml UNSCH PRN IV FLUSH FLUSH AFTER USING IV ACCESS 04/19/18 00:45 Sodium Chloride (NS Flush) 2 ml BID IV FLUSH 04/19/18 09:00 Acetaminophen (Tylenol) 650 mg Q6H PRN PO PAIN 1-5 AND/OR FEVER >101F 04/19/18 00:45 04/19/18 00:50 Hydromorphone HCl (Dilaudid Pf Inj) 1 mg Q4H PRN IV PUSH PAIN SCALE 6 TO 10 04/19/18 00:45 Famotidine (Pepcid Inj) 20 mg Q12HR IV PUSH 04/19/18 09:00 Ondansetron HCl (Zofran Inj) 4 mg Q6H PRN IV PUSH NAUSEA OR VOMITING 04/19/18 00:45 Temazepam (Restoril) 15 mg HS PRN PO INSOMNIA 04/19/18 00:45 Albuterol/ Ipratropium (Duoneb Neb) 1 ampule Q2HR NEB PRN INH WHEEZING 04/19/18 00:45 Enoxaparin Sodium (Lovenox Inj) 40 mg Q24H SQ 04/19/18 00:45 04/19/18 00:51 Miscellaneous Information ([facility]) 1 [id number] XX 04/19/18 00:45 Chlorhexidine Gluconate (Chlorhexidine 2% Cloth) 3 pack Taper DAILY@04 TOP 04/19/18 04:00 04/15/19 03:59 Chlorhexidine Gluconate (Chlorhexidine 2% Cloth) 3 pack UNSCH PRN TOP HYGIENIC CARE 04/19/18 00:45 Senna/Docusate Sodium (Vania-Colace) 1 tab BID PO 04/19/18 09:00 Magnesium Hydroxide (Milk Of Magnesia Liq) 30 ml Q12H PRN PO Mild constipation 04/19/18 00:45 Sennosides (Senokot) 17.2 mg Q12H PRN PO Moderate constipation 04/19/18 00:45 Bisacodyl (Dulcolax Supp) 10 mg DAILY PRN RECTAL SEVERE CONSITIPATION 04/19/18 00:45 Lactulose (Lactulose Liq) 30 ml DAILY PRN PO SEVERE CONSITIPATION 04/19/18 00:45 Flumazenil (Romazicon Inj) 0.2 mg Q1M PRN IV PUSH SEE LABEL COMMENTS 04/19/18 00:45 Lorazepam (Ativan) 1 mg Q4H PRN PO CIWA 8 - 10 04/19/18 00:45 Lorazepam (Ativan Inj) 1 mg Q4H PRN IV PUSH CIWA 8 - 10 04/19/18 00:45 Lorazepam (Ativan) 2 mg Q2H PRN PO CIWA 11-14 04/19/18 00:45 Lorazepam (Ativan Inj) 2 mg Q2H PRN IV PUSH CIWA 11-14 04/19/18 00:45 Lorazepam (Ativan Inj) 2 mg Q1H PRN IV PUSH CIWA 15-20 04/19/18 00:45 Lorazepam (Ativan Inj) 2 mg Q15M PRN IV PUSH CIWA > 20 04/19/18 00:45 Multivitamins 10 ml/Thiamine HCl 100 mg/Folic Acid 1 mg/Dextrose/ Sodium Chloride 511.2 ml @ 125 mls/hr ONCE ONCE IV 04/19/18 02:45 04/19/18 06:50 Potassium Chloride 100 ml @ 50 mls/hr Q2H PRN IV For Potassium 2.8 - 3.2 mEq/L 04/19/18 00:45 Potassium Chloride 100 ml @ 50 mls/hr Q2H PRN IV For Potassium 2.8 - 3.2 mEq/L 04/19/18 00:45 Potassium Bicarb/ Potassium Chloride (K-Lyte Cl Eff) 50 meq UNSCH PRN PO For Potassium 3.3 - 3.5 mEq/L 04/19/18 00:45 Potassium Chloride 100 ml @ 25 mls/hr UNSCH PRN IV For Potassium 3.3 - 3.5 mEq/L 04/19/18 00:45 Potassium Chloride 100 ml @ 50 mls/hr Q2H PRN IV For Potassium 3.3 - 3.5 mEq/L 04/19/18 00:45 Magnesium Sulfate 4 gm/Sodium Chloride 100 ml @ 50 mls/hr UNSCH PRN IV For Magnesium 0.9 - 1.1 mg/dL 04/19/18 00:45 Magnesium Oxide (Mag-Ox) 800 mg UNSCH PRN PO For Magnesium 1.2 - 1.6 mg/dL 04/19/18 00:45 Magnesium Sulfate 2 gm/Sodium Chloride 100 ml @ 50 mls/hr UNSCH PRN IV For Magnesium 1.2 - 1.6 mg/dL 04/19/18 00:45 Potassium Phosphate (K-Phos) 2,000 mg Q4H PRN PO For Phosphorus < 2.5 mg/dL 04/19/18 00:45 Sodium Phosphate 30 mmol/Sodium Chloride 250 ml @ 42 mls/hr UNSCH PRN IV For Phosphorus < 2.5 mg/dL 04/19/18 00:45 Potassium Phosphate (K-Phos) 2,000 mg UNSCH PRN PO/TUBE SEE LABEL COMMENTS 04/19/18 00:45 Potassium Phosphate 30 mmol/ Sodium Chloride 260 ml @ 42 mls/hr UNSCH PRN IV SEE LABEL COMMENTS 04/19/18 00:45 Chlordiazepoxide (Librium) 50 mg Q6H PO 04/19/18 01:00 04/20/18 19:01 04/19/18 00:57 Chlordiazepoxide (Librium) 25 mg Q6H PO 04/21/18 01:00 04/22/18 19:01 Chlordiazepoxide (Librium) 10 mg Q6H PO 04/23/18 01:00 04/24/18 19:01 Chlordiazepoxide (Librium) 5 mg Q6H PO 04/25/18 01:00 04/26/18 19:01 Family History No family history significant for early coronary artery disease Social History Smokes a pack per day Drinks about 1 L of vodka per day Occasionally smokes marijuana Physical Exam Vital Signs Vital Signs Date Time Temp Pulse Resp B/P (MAP) Pulse Ox O2 Delivery O2 Flow Rate FiO2 04/19/18 00:07 99.1 130 20 137/70 (92) 99 Room Air 04/18/18 23:41 140 18 134/71 (92) 98 Room Air 04/18/18 22:13 120 18 117/78 (91) 98 Room Air 04/18/18 21:35 127 04/18/18 20:41 126 20 145/96 (112) 97 Room Air 04/18/18 20:11 125 18 128/86 (100) 100 Room Air 04/18/18 19:48 99 Room Air 04/18/18 19:13 98.4 143 20 160/85 (110) 99 Physical Exam GENERAL: Well-nourished, well-developed patient. SKIN: Warm and dry. HEAD: Normocephalic. EYES: No scleral icterus. No injection or drainage. NECK: Supple, trachea midline. No JVD or lymphadenopathy. CARDIOVASCULAR: Regular rate and rhythm without murmurs, gallops, or rubs. RESPIRATORY: Breath sounds equal bilaterally. No accessory muscle use. GASTROINTESTINAL: Abdomen soft, non-tender, nondistended. MUSCULOSKELETAL: No cyanosis, or edema. BACK: Nontender without obvious deformity. NEURO EXAM: GCS: 15 Mental Status: The patient is alert and oriented to person, place, and time with normal speech. Cranial Nerves: Visual acuity intact bilaterally. Visual escobar normal in all quadrants. Pupils are round, reactive to light. Extraocular movements are intact without ptosis. Hearing is normal bilaterally. Voice is normal. Tongue protrudes midline and moves symmetrically. Laboratory Laboratory Tests Test 04/18/18 19:44 White Blood Count 8.9 Red Blood Count 5.00 Hemoglobin 16.2 Hematocrit 48.3 Mean Corpuscular Volume 96.7 Mean Corpuscular Hemoglobin 32.5 Mean Corpuscular Hemoglobin Concent 33.5 Red Cell Distribution Width 14.0 Platelet Count 131 Mean Platelet Volume 8.2 Neutrophils (%) (Auto) 90.3 Lymphocytes (%) (Auto) 4.7 Monocytes (%) (Auto) 4.2 Eosinophils (%) (Auto) 0.0 Basophils (%) (Auto) 0.8 Neutrophils # (Auto) 8.0 Lymphocytes # (Auto) 0.4 Monocytes # (Auto) 0.4 Eosinophils # (Auto) 0.0 Basophils # (Auto) 0.1 CBC Comment DIFF FINAL Differential Comment Blood Urea Nitrogen 12 Creatinine 0.78 Random Glucose 88 Total Protein 8.2 Albumin 4.3 Calcium Level 9.4 Alkaline Phosphatase 70 Aspartate Amino Transf (AST/SGOT) 84 Alanine Aminotransferase (ALT/SGPT) 47 Total Bilirubin 0.7 Sodium Level 138 Potassium Level 4.4 Chloride Level 98 Carbon Dioxide Level 19.5 Anion Gap 21 Estimat Glomerular Filtration Rate 85 Lipase 170 Thyroid Stimulating Hormone 3rd Gen 0.956 Salicylates Level LESS THAN 1.7 Acetaminophen Level LESS THAN 2.0 Ethyl Alcohol Level 131 Result Diagram: 04/18/18194304/18/181943 Caprini VTE Risk Assessment Caprini VTE Risk Assessment: Mod/High Risk (score >= 2) Caprini Risk Assessment Model Point Value = 1 Point Value = 2 Point Value = 3 Point Value = 5 Age 41-60 Minor surgery BMI > 25 kg/m2 Swollen legs Varicose veins or History of unexplained or recurrent spontaneous Oral contraceptives or hormone replacement Sepsis (< 1 month) Serious lung disease, including pneumonia (< 1 month) Abnormal pulmonary function Acute myocardial infarction Congestive heart failure (< 1 month) History of inflammatory bowel disease Medical patient at bed rest Age 61-74 Arthroscopic surgery Major open surgery (> 45 min) Laparoscopic surgery (> 45 min) Malignancy Confined to bed (> 72 hours) Immobilizing plaster cast Central venous access Age >= 75 History of VTE Family history of VTE Factor V Leiden Prothrombin [id number] Lupus anticoagulant Anticardiolipin antibodies Elevated serum homocysteine Heparin-induced thrombocytopenia Other congenital or acquired thrombophilia Stroke (< 1 month) Elective arthroplasty Hip, pelvis, or leg fracture Acute spinal cord injury (< 1 month) Prophylaxis Regimen Total Risk Factor Score Risk Level Prophylaxis Regimen 0-1 Low Early ambulation 2 Moderate Order ONE of the following: *Sequential Compression Device (SCD) *Heparin 5000 units SQ BID 3-4 Higher Order ONE of the following medications: *Heparin 5000 units SQ TID *Enoxaparin/Lovenox 40 mg SQ daily (WT < 150 kg, CrCl > 30 mL/min) *Enoxaparin/Lovenox 30 mg SQ daily (WT < 150 kg, CrCl > 10-29 mL/min) *Enoxaparin/Lovenox 30 mg SQ BID (WT < 150 kg, CrCl > 30 mL/min) AND/OR *Sequential Compression Device (SCD) 5 or more Highest Order ONE of the following medications: *Heparin 5000 units SQ TID (Preferred with Epidurals) *Enoxaparin/Lovenox 40 mg SQ daily (WT < 150 kg, CrCl > 30 mL/min) *Enoxaparin/Lovenox 30 mg SQ daily (WT < 150 kg, CrCl > 10-29 mL/min) *Enoxaparin/Lovenox 30 mg SQ BID (WT < 150 kg, CrCl > 30 mL/min) AND *Sequential Compression Device (SCD) Assessment and Plan Assessment and Plan Alcohol addiction -High risk for DTs -Admit to ICU -Neuro checks per unit protocol -Librium taper -CIWA meds -Monitor withdrawal -Precedex if needed -Thiamine folate multivitamins -IV fluid hydration Anxiety -Ativan as needed -Psychiatry evaluation for possible suicidal ideation DVT GI prophylaxis -Teds SCDs -Subcu Lovenox -Pepcid Critical Care: The total critical care time was 35 minutes. Time to perform other separately billable procedures was not included in the critical care time. Darryn Prince MD Apr 19, 2018 12:38 am
[2018-04-19] MEDS: LORazepam 2 MG/ML VIAL IV PUSH PRN (00:39)
[2018-04-19] MEDS ORDERED: ACETAMINOPHEN 325 MG TAB PO PRN (00:45)
[2018-04-19] MEDS ORDERED: MAGNESIUM SULFATE INJ 2 GM in SODIUM CHLORIDE 0.9% INJ 96 ML IV PRN (00:45)
[2018-04-19] MEDS ORDERED: TEMAZEPAM 15 MG CAP PO PRN (00:45)
[2018-04-19] MEDS ORDERED: CHLORHEXIDINE GLUCONATE 2 % 1 PACK (2 CLOTHS) TOP PRN (00:45)
[2018-04-19] MEDS ORDERED: POTASSIUM CHLORIDE 25 MEQ EFFERVESCENT TAB PO PRN (00:45)
[2018-04-19] MEDS ORDERED: LACTULOSE SYRUP 20 GM/30 ML CUP PO PRN (00:45)
[2018-04-19] MEDS ORDERED: MAGNESIUM OXIDE 400 MG TAB PO PRN (00:45)
[2018-04-19] MEDS ORDERED: POTASSIUM CHLOR 20 MEQ PREMIX 100 ML IV PRN ×2 (00:45)
[2018-04-19] MEDS ORDERED: LORazepam 2 MG/ML VIAL IV PUSH PRN ×4 (00:45)
[2018-04-19] MEDS ORDERED: NURSING INFORMATION XX SCH (00:45)
[2018-04-19] MEDS ORDERED: ONDANSETRON HCL 4 MG/2 ML VIAL IV PUSH PRN (00:45)
[2018-04-19] MEDS ORDERED: POTASSIUM CHLOR 40 MEQ PREMIX 100 ML IV PRN ×2 (00:45)
[2018-04-19] MEDS ORDERED: POTASSIUM PHOSPHATE INJ 30 MMOL in SODIUM CHLOR 0.9% 250 ML INJ 250 ML IV PRN (00:45)
[2018-04-19] MEDS ORDERED: HYDROmorphone HCL PF 2 MG/ML VIAL IV PUSH PRN (00:45)
[2018-04-19] MEDS ORDERED: SODIUM CHLORIDE 0.9% FLUSH 10 ML FLUSH IV FLUSH PRN (00:45)
[2018-04-19] MEDS ORDERED: LORazepam 1 MG TAB PO PRN (00:45)
[2018-04-19] MEDS ORDERED: FLUMAZENIL 0.5 MG/5 ML VIAL IV PUSH PRN (00:45)
[2018-04-19] MEDS ORDERED: SENNOSIDES 8.6 MG TAB PO PRN (00:45)
[2018-04-19] MEDS ORDERED: SODIUM PHOSPHATE INJ 30 MMOL in SODIUM CHLOR 0.9% 250 ML INJ 240 ML IV PRN (00:45)
[2018-04-19] MEDS ORDERED: POTASSIUM PHOSPHATE MONOBASIC 500 MG TAB PO/TUBE PRN (00:45)
[2018-04-19] MEDS ORDERED: BISACODYL 10 MG SUPP RECTAL PRN (00:45)
[2018-04-19] MEDS ORDERED: RESP: ALBUTEROL 2.5 MG/IPRATROPIUM 0.5 MG NEB (PRN) INH (00:45)
[2018-04-19] MEDS ORDERED: MAGNESIUM HYDROXIDE SUSP 30 ML CUP PO PRN (00:45)
[2018-04-19] MEDS ORDERED: LORazepam 2 MG TAB PO PRN (00:45)
[2018-04-19] MEDS ORDERED: POTASSIUM PHOSPHATE MONOBASIC 500 MG TAB PO PRN (00:45)
[2018-04-19] MEDS ORDERED: MAGNESIUM SULFATE INJ 4 GM in SODIUM CHLORIDE 0.9% INJ 92 ML IV PRN (00:45)
[2018-04-19] MEDS: ONDANSETRON ODT 4 MG TAB PO PRN (00:51)
[2018-04-19] MEDS: ENOXAPARIN SODIUM 40 MG/0.4 ML SYRINGE SQ SCH ×2 (00:51→21:52)
[2018-04-19] MEDS: SODIUM CHLOR 0.9% 1000 ML INJ 1,000 ML IV SCH ×3 (00:51→21:44)
[2018-04-19] MEDS: chlordiazePOXIDE 25 MG CAP PO SCH ×4 (00:57→18:33)
[2018-04-19] MEDS ORDERED: chlordiazePOXIDE 25 MG CAP PO SCH (01:00)
[2018-04-19 02:13] LABS: PHOSPHORUS 2.6 MG/DL (2.5-4.9)
[2018-04-19] MEDS ORDERED: MULTIVITAMIN INJ 10 ML, THIAMINE INJ 100 MG, FOLIC ACID INJ 1 MG in DEXT 5%-NACL 0.45% ... IV ONE (02:45)
[2018-04-19] MEDS: CHLORHEXIDINE GLUCONATE 2 % 1 PACK (2 CLOTHS) TOP SCH (04:00)
--- NOTE | 2018-04-19 04:40 | PD ---
Data Data Last Documented VS Vital Signs Date Time Temp Pulse Resp B/P (MAP) Pulse Ox O2 Delivery O2 Flow Rate FiO2 04/19/18 00:07 99.1 130 20 137/70 (92) 99 Room Air Orders Orders Complete Blood Count With Diff (04/18/18 19:24) Comprehensive Metabolic Panel (04/18/18 19:24) Thyroid Stimulating Hormone (04/18/18 19:24) Ed Urine Pregnancytest Poc (04/18/18 19:24) Oximetry (04/18/18 19:24) Iv Access Insert/Monitor (04/18/18 19:24) Ecg Monitoring (04/18/18 19:24) Psych Screen (04/18/18:24) Drug Screen, Random Urine (04/18/18:24) Alcohol (Ethanol) (04/18/18 19:24) Salicylates (Aspirin) (04/18/18 19:24) Tylenol (Acetaminophen) (04/18/18 19:24) Sodium Chlor 0.9% 1000 Ml Inj (Ns 1000 M (04/18/18 19:30) Electrocardiogram (04/18/18 ) Lipase (04/18/18 19:26) Diet Regular Basic (04/19/18 Breakfast) Alcohol Withdrawal Asmt-Ciwa ONCE (04/18/18 20:27) Ondansetron Odt (Zofran Odt) (04/18/18 20:30) Ibuprofen (Motrin) (04/18/18 20:30) Flumazenil Inj (Romazicon Inj) (04/18/18 20:30) Lorazepam (Ativan) (04/18/18 20:30) Lorazepam Inj (Ativan Inj) (04/18/18 20:30) Lorazepam (Ativan) (04/18/18 20:30) Lorazepam Inj (Ativan Inj) (04/18/18 20:30) Lorazepam Inj (Ativan Inj) (04/18/18 20:30) Lorazepam Inj (Ativan Inj) (04/18/18 20:30) Sodium Chlor 0.9% 1000 Ml Inj (Ns 1000 M (04/18/18 21:45) Lorazepam Inj (Ativan Inj) (04/18/18 23:45) Admit Order (Ed Use Only) (04/19/18 00:28) Phosphorus (Po4) (04/18/18 19:44) Labs Laboratory Tests Test 04/18/18 19:44 White Blood Count 8.9 TH/MM3 Red Blood Count 5.00 MIL/MM3 Hemoglobin 16.2 GM/DL Hematocrit 48.3 % Mean Corpuscular Volume 96.7 FL Mean Corpuscular Hemoglobin 32.5 PG Mean Corpuscular Hemoglobin Concent 33.5 % Red Cell Distribution Width 14.0 % Platelet Count 131 TH/MM3 Mean Platelet Volume 8.2 FL Neutrophils (%) (Auto) 90.3 % Lymphocytes (%) (Auto) 4.7 % Monocytes (%) (Auto) 4.2 % Eosinophils (%) (Auto) 0.0 % Basophils (%) (Auto) 0.8 % Neutrophils # (Auto) 8.0 TH/MM3 Lymphocytes # (Auto) 0.4 TH/MM3 Monocytes # (Auto) 0.4 TH/MM3 Eosinophils # (Auto) 0.0 TH/MM3 Basophils # (Auto) 0.1 TH/MM3 CBC Comment DIFF FINAL Differential Comment Blood Urea Nitrogen 12 MG/DL Creatinine 0.78 MG/DL Random Glucose 88 MG/DL Total Protein 8.2 GM/DL Albumin 4.3 GM/DL Calcium Level 9.4 MG/DL Phosphorus Level 2.6 MG/DL Alkaline Phosphatase 70 U/L Aspartate Amino Transf (AST/SGOT) 84 U/L Alanine Aminotransferase (ALT/SGPT) 47 U/L Total Bilirubin 0.7 MG/DL Sodium Level 138 MEQ/L Potassium Level 4.4 MEQ/L Chloride Level 98 MEQ/L Carbon Dioxide Level 19.5 MEQ/L Anion Gap 21 MEQ/L Estimat Glomerular Filtration Rate 85 ML/MIN Lipase 170 U/L Thyroid Stimulating Hormone 3rd Gen 0.956 uIU/ML Salicylates Level LESS THAN 1.7 MG/DL Acetaminophen Level LESS THAN 2.0 MCG/ML Ethyl Alcohol Level 131 MG/DL MDM Supervised Visit with CAS: Yes Narrative Course The history, exam, and medical decision-making in the associated midlevel provider note were completed with my assistance. I reviewed and agree with the findings presented. I attest that I had a [id number] encounter with the patient on the same day, and personally performed and documented my assessment and findings in the medical record. *My assessment and Findings: This is a 33-year-old female who presents to the emergency department requesting help for alcohol dependence. She drinks a liter of hard alcohol a day and has been doing this for years. Over the past day she cut back on her alcohol use. On exam she is tremulous and tachycardic consistent with alcohol withdrawal. Patient was placed on a CIWA protocol but required multiple doses of IV Ativan and I am concerned she is developing delirium tremens. Patient will be admitted to the intensive care unit for close monitoring and IV benzodiazepines. Physician Communication Physician Communication Discussed with Dr. Prince Diagnosis Primary Impression: Alcohol withdrawal Qualified Codes: F10.230 - Alcohol dependence with withdrawal, uncomplicated Admitting Information Admitting Physician Requests: Admit Scripts No Active Prescriptions or Reported Meds Condition: Stable Neli Miller MD Apr 19, 2018 04:40
[2018-04-19] MEDS ORDERED: SODIUM CHLOR 0.9% 1000 ML INJ 1,000 ML IV ONE (06:45)
[2018-04-19] MEDS: DOCUSATE SODIUM 50 MG/SENNA 8.6 MG TAB PO SCH ×2 (08:43→21:41)
[2018-04-19] MEDS: FAMOTIDINE 20 MG/2 ML VIAL IV PUSH SCH ×2 (08:43→21:41)
[2018-04-19] MEDS: NICOTINE 21 MG/24 HR PATCH T-DERMAL SCH (09:00)
[2018-04-19] MEDS: SODIUM CHLORIDE 0.9% FLUSH 10 ML FLUSH IV FLUSH SCH ×2 (09:00→21:42)
[2018-04-19] MEDS ORDERED: REMOVE OLD PATCH T-DERMAL SCH ×2 (09:00→21:00)
--- NOTE | 2018-04-19 13:41 | EKG ---
Date Performed: 04/18/2018 Time Performed: 19:29:05 PTAGE: 33 years EKG: SINUS TACHYCARDIA WITH SHORT MT INTERVAL ABNORMAL RHYTHM ECG Since PREVIOUS TRACING , no significant change noted PREVIOUS TRACIN12/16/2017 20.47 DOCTOR: Cristopher Almazan Interpretating Date/Time 04/19/2018 13:40:42
--- NOTE | 2018-04-19 13:42 | EKG ---
Date Performed: 04/19/2018 Time Performed: 00:04:55 PTAGE: 33 years EKG: SINUS TACHYCARDIA ABNORMAL RHYTHM ECG Since PREVIOUS TRACING , no significant change noted PREVIOUS TRACIN04/18/2018 19.29 DOCTOR: Cristopher Almazan Interpretating Date/Time 04/19/2018 13:41:29
[2018-04-20] VITALS (23 sets, daily range): BP systolic 121–155; BP diastolic 84–97; PULSE 84–122; RESP 16–18; TEMP 98.4–99.4; O2SAT 94–96
[2018-04-20] MEDS: chlordiazePOXIDE 25 MG CAP PO SCH ×4 (00:51→18:37)
[2018-04-20] MEDS: CHLORHEXIDINE GLUCONATE 2 % 1 PACK (2 CLOTHS) TOP SCH (02:23)
[2018-04-20 04:16] LABS: BASOPHIL % 0.8 % (0.0-2.0); EOSINOPHIL % 0.6 % (0.0-4.0); HEMATOCRIT 40.8 % (35.0-46.0); HEMOGLOBIN 13.8 GM/DL (11.6-15.3); LYMPH % 21.5 % (9.0-44.0); LYMPHOCYTE # 0.9 TH/MM3 (1.0-4.8); MEAN CELL VOLUME 97.8 FL (80.0-100.0); MEAN CORPUSCULAR HEMOGLOBIN 33.1 PG (27.0-34.0); MEAN CORPUSCULAR HGB CONC 33.8 % (32.0-36.0); MEAN PLATELET VOLUME 8.6 FL (7.0-11.0); MONO % 8.1 % (0.0-8.0); MONOCYTE # 0.3 TH/MM3 (0-0.9); PLATELET COUNT 80 TH/MM3 (150-450); RED BLOOD COUNT 4.17 MIL/MM3 (4.00-5.30); RED CELL DISTRIBUTION WIDTH 13.9 % (11.6-17.2); WHITE BLOOD COUNT 4.3 TH/MM3 (4.0-11.0)
[2018-04-20 04:49] LABS: ALBUMIN 3.4 GM/DL (3.4-5.0); ALKALINE PHOSPHATASE 58 U/L (45-117); ALT (GPT) 30 U/L (10-53); AST (GOT) 38 U/L (15-37); BICARBONATE 28.2 MEQ/L (21.0-32.0); BLOOD UREA NITROGEN 5 MG/DL (7-18); CALCIUM 8.9 MG/DL (8.5-10.1); CHLORIDE 104 MEQ/L (98-107); CREATININE 0.68 MG/DL (0.50-1.00); GLOMERULAR FILTRATION RATE 100 ML/MIN (>89); GLUCOSE,RANDOM 90 MG/DL (74-106); MAGNESIUM 1.8 MG/DL (1.5-2.5); PHOSPHORUS 3.1 MG/DL (2.5-4.9); SODIUM (NA) 141 MEQ/L (136-145); TOTAL BILIRUBIN ADULT 0.8 MG/DL (0.2-1.0); TOTAL PROTEIN 6.5 GM/DL (6.4-8.2)
[2018-04-20] MEDS: SODIUM CHLORIDE 0.9% FLUSH 10 ML FLUSH IV FLUSH SCH (09:00)
[2018-04-20] MEDS: FAMOTIDINE 20 MG/2 ML VIAL IV PUSH SCH (09:34)
[2018-04-20] MEDS: DOCUSATE SODIUM 50 MG/SENNA 8.6 MG TAB PO SCH (09:34)
[2018-04-20] MEDS: NICOTINE 21 MG/24 HR PATCH T-DERMAL SCH (09:34)
[2018-04-20] MEDS: SODIUM CHLOR 0.9% 1000 ML INJ 1,000 ML IV SCH (10:22)
[2018-04-20] MEDS ORDERED: NICO21DI25 T-DERMAL (11:26)
--- NOTE | 2018-04-20 11:27 | HHI.DCPOC ---
Discharge Care Plan Diagnosis: (1) Suicidal ideation (2) Alcohol dependence, binge pattern Goals to Promote Your Health * To prevent worsening of your condition and complications * To maintain your health at the optimal level Directions to Meet Your Goals Take your medications as prescribed Follow your dietary instruction Follow activity as directed Keep your appointments as scheduled Take your immunizations and boosters as scheduled If your symptoms worsen call your PCP, if no PCP go to Urgent Care Center or Emergency Room Smoking is Dangerous to Your Health. Avoid second hand smoke Call the 24-hour hour crisis hotline for domestic abuse at Lc Mendez DO Apr 20, 2018 11:27
--- NOTE | 2018-04-20 11:31 | HHI.PR ---
Subjective Remarks The patient said that she has been drinking heavily in an effort to kill herself. She says that a year ago she lost a baby. She says she also lost her fianc a while ago. She says that every 2 months she seems to get hit with severe depression. She asks why she is so very tired all the time. She says every once in a while she does have episodes where she stays awake for nights at a time and spends a lot of money. She says she has generalized abdominal pain. She endorsed some pain with urination. She endorsed some diarrhea. Discussed with nursing at the bedside. Objective Vitals Vital Signs Date Time Temp Pulse Resp B/P (MAP) Pulse Ox O2 Delivery O2 Flow Rate FiO2 04/20/18 10:00 104 04/20/18 09:00 114 04/20/18 08:13 98.4 88 18 121/84 (96) 94 04/20/18 08:00 86 04/20/18 07:00 104 04/20/18 06:00 88 04/20/18 05:00 86 04/20/18 04:00 90 04/20/18 03:44 93 16 96 04/20/18 03:14 90 04/20/18 02:10 94 04/20/18 01:25 92 04/20/18 01:04 84 16 155/97 (116) 96 04/19/18 20:21 96 04/19/18 19:42 103 16 132/91 (105) 97 04/19/18 18:00 96 04/19/18 17:49 98.6 98 18 135/94 (108) 97 04/19/18 15:30 98.0 97 21 120/94 (103) 97 04/19/18 15:00 92 I/O 04/19/18 04/19/18 04/19/18 04/20/18 04/20/18 04/20/18 07:00 15:00 23:00 07:00 15:00 23:00 Intake Total 1100 ml 1511 ml 2218 ml 240 ml 1000 ml Output Total 0 ml 630 ml 1400 ml Balance 1100 ml 1511 ml 1588 ml -1160 ml 1000 ml Intake Oral 100 ml 1210 ml 240 ml IV Total 1000 ml 1511 ml 1008 ml 1000 ml Output Urine Total 0 ml 630 ml 1000 ml Stool Total 0 ml 0 ml 400 ml Result Diagram: 6/25/18 0403 6/25/18 0402 Objective Remarks GENERAL: Well-nourished, well-developed patient. SKIN: Warm and dry. HEAD: Normocephalic. EYES: No scleral icterus. No injection or drainage. NECK: Supple, trachea midline. No JVD or lymphadenopathy. CARDIOVASCULAR: Regular rate and rhythm without murmurs, gallops, or rubs. RESPIRATORY: Breath sounds equal bilaterally. No accessory muscle use. GASTROINTESTINAL: Abdomen soft, nondistended. Mild generalized tenderness. MUSCULOSKELETAL: No cyanosis, or edema. BACK: Nontender without obvious deformity. NEURO: Lethargic. Moves upper and lower extremities. Follows commands. PSYCH: Flat affect. A/P Assessment and Plan Alcohol abuse/ Suicidal ideation High risk for DTs with significant volumes of alcohol consumed. - Librium taper. - CIWA protocol. - Thiamine, multivitamin. - IV fluid hydration. - psych consult appreciated. Will d/c to med-psych unit. Abdominal pain Likely s/t gastritis. Lipase and LFTs not elevated. - PPI. UTI Pt endorses pain with urination. - obtain a UA. Thrombocytopenia Likely s/t alcohol induced bone marrow suppression. - follow CBC. PPx: SCDs Discharge Planning D/c to med psych Lc Mendez DO Apr 20, 2018 11:31
[2018-04-20] MEDS ORDERED: CHLO25CA9 PO (11:34)
[2018-04-20] MEDS ORDERED: VITA100T54 PO (11:38)
[2018-04-20] MEDS ORDERED: PANT40TA3 PO (11:38)
[2018-04-20] MEDS ORDERED: THERH PO (11:38)
[2018-04-20 14:20] LABS: BACTERIA, URINE OCC /hpf; BILIRUBIN, URINE NEG (NEG); BLOOD, URINE NEG (NEG); GLUCOSE,URINE NEG (NEG); KETONE, URINE NEG (NEG); MUCUS URINE FEW /lpf (OCC); NITRITE,URINE NEG (NEG); SQUAMOUS EPITHELIAL CELL URINE 1 /hpf (0-5); URINE COLOR YELLOW (YELLW/STRAW); URINE LEUKOCYTE ESTERASE NEG (NEG)
--- NOTE | 2018-04-20 15:51 | PD.PSY.CON ---
Provisional Diagnosis Admission Date Apr 19, 2018 at 00:31 [place]. Major depressive disorder, recurrent, alcohol induced mood disorder, alcohol use disorder History of Present Illness Service Psychiatry Consult Requested By Medicine Reason for Consult Suicidal ideation Primary Care Physician No Primary Care Physician HPI The patient is 33-year-old woman, single, domiciled in [place], unemployed, with psychiatric history of depression, anxiety, alcohol use disorder, no previous hospitalizations, no suicidal attempt, but extensive history of self cutting behavior, no significant medical history, who was brought by her mother for evaluation. She has been binge drinking over the last week. She is consume 15 bottles of vodka. Patient states that she wants to drink herself to however patient has not been drinking all day. Her mother states that she gets this way of her relationships with men. The patient denies any other medical history. Denies any other substance abuse. She has no other symptoms to report. Per chart review her mom tried to take her to [facility], and because of the high risk of development of severe DTs the patient is admitted to ICU. She was consulted to psychiatry due to suicidal ideation. EMR was reviewed. No collateral information available at this moment. The patient is found with a one-to-one sitter. Poorly cooperative , quite oppositional, difficult to engage in a conversation. She reports that she is "depressed and tired", in the setting and I worry about her reasons her emotions of depression. She says that she has been drinking alcohol to . Patient reports that she feels hopeless, helpless, with generally pessimism,, " I feel in a dark hole", states that she wishes to to drink, go to sleep and never wake up. She reports that she has been cutting herself in order to cope with anxiety and depression and relieve emotional pain. Patient is fully oriented x3. She denies symptoms of withdrawal of the moment. Review of Systems Constitutional: DENIES: Diaphoretic episodes, Fatigue, Fever, Weight gain, Weight loss, Chills, Dizziness, Change in appetite, Night Sweats Endocrine: DENIES: Abnorml menstrual pattern, Heat/cold intolerance, Polydipsia , Polyuria, Polyphagia Eyes: DENIES: Blurred vision, Diplopia, Eye inflammation, Eye pain, Vision loss , Photosensitivity, Double Vision Ears, nose, mouth, throat: DENIES: Tinnitus, Hearing loss, Vertigo, Nasal discharge, Oral lesions, Throat pain, Hoarseness, Ear Pain, Running Nose, Epistaxis, Sinus Pain, Toothache, Odynophagia Respiratory: DENIES: Apneas, Cough, Snoring, Wheezing, Hemoptysis, Sputum production, Shortness of breath Cardiovascular: DENIES: Chest pain, Palpitations, Syncope, Dyspnea on Exertion , PND, Lower Extremity Edema, Orthopnea, Claudication Gastrointestinal: DENIES: Abdominal pain, Black stools, Bloody stools, Constipation, Diarrhea, Nausea, Vomiting, Difficulty Swallowing, Anorexia Integumentary: DENIES: Abnormal pigmentation, Pruritus, Rash, Nail changes, Breast masses, Breast skin changes, Nipple discharge Hematologic/lymphatic: DENIES: Bruising, Lymphadenopathy Immunologic/allergic: DENIES: Eczema, Urticaria Neurologic: DENIES: Abnormal gait, Headache, Localized weakness, Paresthesias, Seizures, Speech Problems, Tremor, Poor Balance Psychiatric: COMPLAINS OF: Depression, Suicidal Ideation, DENIES: Anxiety, Confusion, Mood changes, Hallucinations, Agitation, Homicidal Ideation, Delusions Past Family Social History Coded Allergies: No Known Allergies (Verified Adverse Reaction, Unknown, 04/18/18) Active Scripts Thiamine (Vitamin B-1) 100 Mg Tab, 100 MG PO DAILY for Nutritional Supplement, # 30 TAB 0 Refills Prov:Lc Mendez DO 04/20/18 Multivitamin-Hematinic (Therems-H) 1 Tab, 1 TAB PO DAILY for Nutritional Supplement, #30 TAB 0 Refills Prov:Lc Mendez DO 04/20/18 Pantoprazole (Pantoprazole) 40 Mg Tab, 40 MG PO DAILY for Reflux, #30 TAB 0 Refills Prov:Lc Mendez DO 04/20/18 Chlordiazepoxide HCl (Chlordiazepoxide HCl) 25 Mg Capsule, 25 MG PO Q6HR for Alcohol Detox, #12 CAP Prov:Lc Mendez DO 04/20/18 Discontinued Scripts Ondansetron Odt (Zofran Odt) 4 Mg Tab, 4 MG SL Q6HR Y for Nausea/Vomiting, #10 TAB 0 Refills Prov:Fan Starr MD 02/18/18 Current Medications Medications (Trade) Dose Ordered Sig/Edelmira Route Start Time Stop Time Status Last Admin (Zofran Odt) 4 mg Q8H PRN PO 04/18/18 20:30 04/19/18 00:51 (Motrin) 600 mg Q8H PRN PO 04/18/18 20:30 04/18/18 20:41 Sodium Chloride 1,000 ml @ 84 mls/hr [id number] IV 04/19/18 00:32 04/20/18 10:22 (NS Flush) 2 ml UNSCH PRN IV FLUSH 04/19/18 00:45 (NS Flush) 2 ml BID IV FLUSH 04/19/18 09:00 04/19/18 21:42 (Tylenol) 650 mg Q6H PRN PO 04/19/18 00:45 04/19/18 00:50 (Dilaudid Pf Inj) 1 mg Q4H PRN IV PUSH 04/19/18 00:45 (Pepcid Inj) 20 mg Q12HR IV PUSH 04/19/18 09:00 04/20/18 09:34 (Zofran Inj) 4 mg Q6H PRN IV PUSH 04/19/18 00:45 (Restoril) 15 mg HS PRN PO 04/19/18 00:45 (Duoneb Neb) 1 ampule Q2HR NEB PRN INH 04/19/18 00:45 ([facility] Information) 1 [id number] XX 04/19/18 00:45 (Chlorhexidine 2% Cloth) 3 pack Taper DAILY@04 TOP 04/19/18 04:00 04/15/19 03:59 (Chlorhexidine 2% Cloth) 3 pack UNSCH PRN TOP 04/19/18 00:45 (Vania-Colace) 1 tab BID PO 04/19/18 09:00 04/20/18 09:34 (Milk Of Magnesia Liq) 30 ml Q12H PRN PO 04/19/18 00:45 (Senokot) 17.2 mg Q12H PRN PO 04/19/18 00:45 (Dulcolax Supp) 10 mg DAILY PRN RECTAL 04/19/18 00:45 (Lactulose Liq) 30 ml DAILY PRN PO 04/19/18 00:45 (Romazicon Inj) 0.2 mg Q1M PRN IV PUSH 04/19/18 00:45 (Ativan) 1 mg Q4H PRN PO 04/19/18 00:45 (Ativan Inj) 1 mg Q4H PRN IV PUSH 04/19/18 00:45 04/19/18 08:43 (Ativan) 2 mg Q2H PRN PO 04/19/18 00:45 (Ativan Inj) 2 mg Q2H PRN IV PUSH 04/19/18 00:45 04/19/18 02:09 (Ativan Inj) 2 mg Q1H PRN IV PUSH 04/19/18 00:45 (Ativan Inj) 2 mg Q15M PRN IV PUSH 04/19/18 00:45 (Librium) 50 mg Q6H PO 04/19/18 01:00 04/20/18 19:01 04/20/18 14:02 (Librium) 25 mg Q6H PO 04/21/18 01:00 04/22/18 19:01 (Librium) 10 mg Q6H PO 04/23/18 01:00 04/24/18 19:01 (Librium) 5 mg Q6H PO 04/25/18 01:00 04/26/18 19:01 (Habitrol 21 Mg Patch.24 Hr) 1 patch Taper DAILY T-DERMAL 04/19/18 09:00 05/10/18 08:59 04/20/18 09:34 Miscellaneous Information 1 HS T-DERMAL 04/19/18 21:00 Family Psych History No family together his Social History Patient was born and raised in [facility], she lives alone in [place], single, unemployed, her highest level of education is some college Patient's Strengths (min. 2) Verbal communication Physical Exam No tremors, no EPS, no psychomotor agitation or retardation at this moment. Vital Signs Vital Signs Date Time Temp Pulse Resp B/P (MAP) Pulse Ox O2 Delivery O2 Flow Rate FiO2 04/20/18 14:00 122 04/20/18 12:16 98.7 18 131/90 (104) 94 04/19/18 02:27 Room Air I/O 04/20/18 04/20/18 04/21/18 08:00 16:00 00:00 Intake Total 240 ml 1000 ml Output Total 1400 ml Balance -1160 ml 1000 ml Lab Results Test 04/19/18 22:40 04/20/18 04:02 04/20/18 04:03 04/20/18 14:01 Urine Opiates Screen NEG Urine Barbiturates Screen NEG Urine Amphetamines Screen NEG Urine Benzodiazepines Screen POS Urine Cocaine Screen NEG Urine Cannabinoids Screen NEG Prothrombin Time 10.0 SEC Prothromb Time International Ratio 1.0 RATIO Activated Partial Thromboplast Time 28.0 SEC Blood Urea Nitrogen 5 MG/DL Creatinine 0.68 MG/DL Random Glucose 90 MG/DL Total Protein 6.5 GM/DL Albumin 3.4 GM/DL Calcium Level 8.9 MG/DL Phosphorus Level 3.1 MG/DL Magnesium Level 1.8 MG/DL Alkaline Phosphatase 58 U/L Aspartate Amino Transf (AST/SGOT) 38 U/L Alanine Aminotransferase (ALT/SGPT) 30 U/L Total Bilirubin 0.8 MG/DL Sodium Level 141 MEQ/L Potassium Level 3.8 MEQ/L Chloride Level 104 MEQ/L Carbon Dioxide Level 28.2 MEQ/L Anion Gap 9 MEQ/L Estimat Glomerular Filtration Rate 100 ML/MIN White Blood Count 4.3 TH/MM3 Red Blood Count 4.17 MIL/MM3 Hemoglobin 13.8 GM/DL Hematocrit 40.8 % Mean Corpuscular Volume 97.8 FL Mean Corpuscular Hemoglobin 33.1 PG Mean Corpuscular Hemoglobin Concent 33.8 % Red Cell Distribution Width 13.9 % Platelet Count 80 TH/MM3 Mean Platelet Volume 8.6 FL Neutrophils (%) (Auto) 69.0 % Lymphocytes (%) (Auto) 21.5 % Monocytes (%) (Auto) 8.1 % Eosinophils (%) (Auto) 0.6 % Basophils (%) (Auto) 0.8 % Neutrophils # (Auto) 3.0 TH/MM3 Lymphocytes # (Auto) 0.9 TH/MM3 Monocytes # (Auto) 0.3 TH/MM3 Eosinophils # (Auto) 0.0 TH/MM3 Basophils # (Auto) 0.0 TH/MM3 CBC Comment AUTO DIFF Differential Comment AUTO DIFF CONFIRMED Platelet Estimate LOW Platelet Morphology Comment NORMAL Urine Color YELLOW Urine Turbidity CLEAR Urine pH 7.0 Urine Specific [place] 1.008 Urine Protein NEG mg/dL Urine Glucose (UA) NEG mg/dL Urine Ketones NEG mg/dL Urine Occult Blood NEG Urine Nitrite NEG Urine Bilirubin NEG Urine Urobilinogen LESS THAN 2 mg/dL Urine Leukocyte Esterase NEG Urine WBC LESS THAN 1 /hpf Urine Squamous Epithelial Cells 1 /hpf Urine Bacteria OCC /hpf Urine Mucus FEW /lpf Microscopic Urinalysis Comment CULT NOT INDICATED Mental Status Examination Appearance: Appropriate, Dirty, Disheveled Consciousness: Alert Orientation: x4 Motor Activity: Normal gait Speech: Unremarkable Language: Adequate Fund of Knowledge: Adequate Attention and Concentration: Adequate Memory: Unremarkable Mood: Angry, Sad Affect: Irritable Thought Process & Associations: Intact Thought Content: Appropriate Hallucination Type: None Delusion Type: None Suicidal Ideation: No Suicidal Plan: No Suicidal Intention: No Homicidal Ideation: No Homicidal Plan: No Homicidal Intention: No Insight: Poor Judgment: Poor Assessment & Plan Problem List: (1) Adjustment disorder with depressed mood ICD Codes: F43.21 - Adjustment disorder with depressed mood Assessment & Plan: The patient reports symptoms of depression, hopelessness, helplessness, worthlessness suicidal ideation, no specific plan. The patient has been in a binge of alcohol, "drinking to ". She has history of poor impulse control, self cutting behavior, cluster B traits, at this moment she has elevated risk of danger to self. Will transfer to psychiatry for stabilization and safety. Patient is in agreement with a catheter hospitalization. She can sign voluntary admission. Will start CIWA protocol. Will start Zoloft 25 mg for depression. Brief supportive psychotherapy provided. Assessment & Plan Estimated LOS: Fausto Contreras MD Apr 20, 2018 15:51
[2018-04-21] MEDS ORDERED: chlordiazePOXIDE 25 MG CAP PO SCH (01:00)
== END 2018-04-20 19:00 | DRG 897 ==
LOC: NEPE 19:06 → NEDA 04-19 00:31 → HCVI 04-19 03:44 → HCIS 04-19 17:26
PROVIDERS: ADMIT Hospitalist; ATTEND Hospitalist
DX: F10.239 Alcohol dependence with withdrawal, unspecified (principal); R45.851 Suicidal ideations; D69.59 Other secondary thrombocytopenia; F43.21 Adjustment disorder with depressed mood; F17.210 Nicotine dependence, cigarettes, uncomplicated; F10.24 Alcohol dependence with alcohol-induced mood disorder; F12.90 Cannabis use, unspecified, uncomplicated; K59.00 Constipation, unspecified; R19.7 Diarrhea, unspecified; R30.9 Painful micturition, unspecified; F41.9 Anxiety disorder, unspecified; K29.70 Gastritis, unspecified, without bleeding; Z98.82 Breast implant status; Z91.5 Personal history of self-harm
CPT/HCPCS: 80053; 80307; 81001; 83690; 83735; 84100; 84443; 84703; 85025; 85610; 85730; 87641; 93005; 96361; 96374; 96376; J1650; J2060; J3411; J7030

== ENCOUNTER 2018-04-20 17:43 | Inpatient (IN) | payer SELFPAY ==
[~2018-04-20 17:43] MED LIST changes: +CHLO25CA9 PO; +NICO21DI25 T-DERMAL; +PANT40TA3 PO; +THERH PO; +VITA100T54 PO; -ZOFR4TAB3 SL
[2018-04-20 19:05] VITALS: BP 131/94; PULSE 108; RESP 18; TEMP 98.6; O2SAT 98
[2018-04-20] MEDS ORDERED: MAGNESIUM HYDROXIDE SUSP 30 ML CUP PO PRN (21:00)
[2018-04-20] MEDS ORDERED: ACETAMINOPHEN 325 MG TAB PO PRN (21:00)
[2018-04-20] MEDS: REMOVE OLD NICODERM (NICOTINE) PATCH T-DERMAL SCH (21:00)
[2018-04-20] MEDS ORDERED: ALUMINUM/MAGNESIUM/SIMETH 30 ML CUP PO PRN (21:00)
[2018-04-20] MEDS ORDERED: LORazepam 1 MG TAB PO PRN (21:15)
[2018-04-20] MEDS ORDERED: FLUMAZENIL 0.5 MG/5 ML VIAL IV PUSH PRN (21:15)
[2018-04-20] MEDS ORDERED: LORazepam 2 MG TAB PO PRN (21:15)
[2018-04-20] MEDS ORDERED: LORazepam 2 MG/ML VIAL IV PUSH PRN ×4 (21:15)
[2018-04-21] MEDS: chlordiazePOXIDE 25 MG CAP PO SCH ×4 (00:44→18:27)
[2018-04-21 05:36] VITALS: BP 143/80; PULSE 99; RESP 16; TEMP 98; O2SAT 96
[2018-04-21] MEDS: THIAMINE HCL 100 MG TAB PO SCH (08:20)
[2018-04-21] MEDS: MULTIVITAMIN TAB PO SCH (08:20)
[2018-04-21] MEDS: PANTOPRAZOLE SOD 40 MG DELAYED RELEASE TAB PO SCH (08:20)
[2018-04-21] MEDS: NICOTINE 21 MG/24 HR PATCH T-DERMAL SCH (08:21)
--- NOTE | 2018-04-21 11:41 | HHI.HP ---
Provisional Diagnosis Admission Date Apr 20, 2018 at 19:55 [place]. Adjustment disorder with depressed mood, alcohol use disorder Certification of Person's Competence To Provide Express and Informed Consent I have personally examined Palma Cormier , a person being served at [facility] on, Apr 21, 2018 11:35. Express and informed consent means consent voluntarily given in writing, by a competent person, after sufficient explanation and disclosure of the subject matter involved to enable the person to make a knowing and willful decision without any element of force, fraud, deceit, duress, or other form of constraint or coercion. This person is 18 years of age or older, is not now known to be incompetent to consent to treatment with a guardian advocate, and does not have a health care surrogate or proxy currently making medical treatment decisions. I have found this person to be one of the following: [xxx] Competent to provide express and informed consent, as defined above, for voluntary admission to this facility and is competent to provide express and informed consent for treatment. He/she has the consistent capacity to make well reasoned, willful, and knowing decisions concerning his or her medical or mental health treatment. The person fully and consistently understands the purpose of the admission for examination/placement and is fully capable of personally exercising all rights assured [place] Incompetent to provide express and informed consent to voluntary admission, and this is incompetent to provide express and informed consent to treatment. The person must be transferred to involuntary status and a petition for a guardian advocate filed with the Circuit Court. [] Refusing to provide express and informed consent to voluntary admission but is competent to provide express and informed consent for treatment. The person must be discharged or transferred to involuntary status. Form shall be completed within 24 hours of a person's arrival at the receiving facility and filed in the clinical record of each person: 1. Admitted on a voluntary basis 2. Permitted to provide express and informed consent to his/her own treatment 3. Allowed to transfer from involuntary to voluntary status 4. Prior to permitting a person to consent to his or her own treatment after having been previously found incompetent to consent to treatment. History of Present Illness Capacity: Has Capacity HPI Patient is a 33-year-old woman, single, domiciled alone, with a past psychiatric history of depression, anxiety, no previous psychiatric admissions, no previous suicide attempt but does have a history of self-injurious behavior via cutting, as well as alcohol abuse recently which patient was brought in by mother due to concern for excessive drinking for the past week along with suicide ideations in the context of depressed mood, feeling helpless and hopeless, due to psychosocial stressors. Patient was admitted to the medical unit for alcohol withdrawal, seen by psychiatry consult service and patient is admitted voluntarily to the inpatient psychiatry for further evaluation and management. As per chart, patient was seen during psychiatric consultation with Dr. Mcfadden who had noted: Poorly cooperative, quite oppositional, difficult to engage in a conversation. She reports that she is "depressed and tired", in the setting and I worry about her reasons her emotions of depression. She says that she has been drinking alcohol to . Patient reports that she feels hopeless, helpless, with generally pessimism,, "I feel in a dark hole", states that she wishes to to drink, go to sleep and never wake up. She reports that she has been cutting herself in order to cope with anxiety and depression and relieve emotional pain. Patient is fully oriented x3. Patient was seen along with nurse and counselor lying hospital bed with poor eye contact, eyes closed mostly during interview and tearful at times. Patient states "sometimes I am not all there", reporting having been drinking daily since 04/04/18 but also reports history of frequent alcohol use since teenage years. Patient reports this past binge she had been drinking 1 bottle of liquor accompanied by decreased sleep, depressed mood, feeling helpless and hopeless, poor appetite, along with suicide ideations for the past couple of weeks. Patient reports that recently she had discord with friend, and treatments. Also feeling upset that her fiance had to move away for a job and having had discord with him as well. Patient recalls having had an back in August 2017 treatment. Which has been stressful and contributing to her current depression. Patient also upset feeling that "men leave me" and that she was trying to drink herself to recently. Prior to her admission she states that she felt her body was shutting down had called her mother who had brought to the hospital for further evaluation. Patient at this time denying SI, HI, AVH or delusions. Challenge with discussion about engaging in rehabilitation program after stabilization was reviewed which she agreed to. Family psychiatric history: White mother with depression?, No suicides in the family Past psychiatric history: Previous psychiatric diagnoses depression, anxiety, no previous psychiatric admissions, no previous suicide attempts, history of self-injurious behavior via cutting as per chart as patient denies during interview. Patient reports having had a therapist recently last seen in January but no outpatient mental health provider. Patient also reports having been on psychotropic medications but was unable to recall the name. Substance use history: Alcohol use daily since her 20s but had began drinking in her teenage years. Patient reports daily use of 1 bottle of wine usually. Patient also reports tobacco use 1 pack per day, and marijuana use once per week. Patient denies use of any other drugs although reports remote use of cocaine and LSD years ago. Patient reports having had previous detox and [facility] but no rehabilitation programs. Past medical history: Denies Allergies: NKDA Social history: Born and raised in [facility], domiciled alone, single, highest education is some college. She reports being employed, no background or asked to firearms. Review of Systems Except as stated in HPI: all other systems reviewed are Neg Past Psych History Violence risk - others (6 mos) Low Violence risk - self (6 mos) Elevated due to recent suicidal ideations Substance Abuse History Drugs/Alcohol past 12 months See HPI Past Family Social History Coded Allergies: No Known Allergies (Verified Adverse Reaction, Unknown, 04/18/18) Active Scripts Thiamine (Vitamin B-1) 100 Mg Tab, 100 MG PO DAILY for Nutritional Supplement, # 30 TAB 0 Refills Prov:Lc Mendez DO 04/20/18 Multivitamin-Hematinic (Therems-H) 1 Tab, 1 TAB PO DAILY for Nutritional Supplement, #30 TAB 0 Refills Prov:Lc Mendez DO 04/20/18 Pantoprazole (Pantoprazole) 40 Mg Tab, 40 MG PO DAILY for Reflux, #30 TAB 0 Refills Prov:Lc Mendez DO 04/20/18 Chlordiazepoxide HCl (Chlordiazepoxide HCl) 25 Mg Capsule, 25 MG PO Q6HR for Alcohol Detox, #12 CAP Prov:Lc Mendez DO 04/20/18 Nicotine (Eq Nicotine) 21 Mg/24 Hour Dis, 1 PATCH T-DERMAL DAILY for SMOKING, # 30 PATCH Prov:Lc Mendez DO 04/20/18 Discontinued Scripts Ondansetron Odt (Zofran Odt) 4 Mg Tab, 4 MG SL Q6HR Y for Nausea/Vomiting, #10 TAB 0 Refills Prov:Fan Starr MD 02/18/18 Current Medications Medications (Trade) Dose Ordered Sig/Edelmira Route Start Time Stop Time Status Last Admin (Theragran) 1 tab DAILY PO 04/21/18 09:00 04/21/18 08:20 (Protonix) 40 mg DAILY PO 04/21/18 09:00 04/21/18 08:20 (Vitamin B1) 100 mg DAILY PO 04/21/18 09:00 04/21/18 08:20 (Librium) 25 mg Q6H PO 04/21/18 01:00 04/21/18 06:11 (Habitrol 21 Mg Patch.24 Hr) 1 patch DAILY T-DERMAL 04/21/18 09:00 04/21/18 08:21 Miscellaneous Information 1 HS T-DERMAL 04/20/18 21:00 04/20/18 21:00 (Tylenol) 650 mg Q4H PRN PO 04/20/18 21:00 (Milk Of Magnesia Liq) 30 ml DAILY PRN PO 04/20/18 21:00 (Mag-Al Plus Susp Liq) 30 ml Q6H PRN PO 04/20/18 21:00 (Ativan) 1 mg Q4H PRN PO 04/20/18 21:15 04/21/18 01:19 (Ativan Inj) 1 mg Q4H PRN IV PUSH 04/20/18 21:15 (Ativan) 2 mg Q2H PRN PO 04/20/18 21:15 (Ativan Inj) 2 mg Q2H PRN IV PUSH 04/20/18 21:15 (Ativan Inj) 2 mg Q1H PRN IV PUSH 04/20/18 21:15 (Ativan Inj) 2 mg Q15M PRN IV PUSH 04/20/18 21:15 (Romazicon Inj) 0.2 mg Q1M PRN IV PUSH 04/20/18 21:15 Social History See HPI Patient's Strengths (min. 2) Verbal and communicative Physical Exam Patient not noted to be in acute distress, no gross motor abnormalities, no tremors or EPS, no noted psychomotor retardation or agitation. Vital Signs Vital Signs Date Time Temp Pulse Resp B/P (MAP) Pulse Ox O2 Delivery O2 Flow Rate FiO2 04/21/18 05:36 98.0 99 16 143/80 (101) 96 I/O 04/21/18 04/21/18 04/22/18 08:00 16:00 00:00 Intake Total 240 ml 480 ml Balance 240 ml 480 ml Mental Status Examination Appearance: Disheveled (Slightly) Consciousness: Alert Orientation: Person, Place, Date/Time Motor Activity: Normal gait Speech: Other (Low volume) Language: Adequate Fund of Knowledge: Inadequate Attention and Concentration: Adequate Mood: Sad Affect: Sad, Other (Tearful) Thought Process & Associations: Linear Thought Content: Appropriate Hallucination Type: None Delusion Type: None Suicidal Ideation: Yes Suicidal Plan: No Suicidal Intention: No Homicidal Ideation: No Homicidal Plan: No Homicidal Intention: No Insight: Fair Judgment: Impulsive Assessment & Plan Problem List: (1) Adjustment disorder with depressed mood ICD Codes: F43.21 - Adjustment disorder with depressed mood (2) Alcohol withdrawal ICD Codes: F10.239 - Alcohol withdrawal syndrome Status: Acute (3) Alcohol dependence, binge pattern ICD Codes: F10.20 - Alcohol dependence, episodic Status: Acute Assessment & Plan Estimated LOS: 5-7 days. Patient is a 33-year-old woman who carries a diagnoses of depression and anxiety, no previous psychiatric admissions, history of self-injurious behavior via cutting, and recent increase in alcohol abuse in the context of psychosocial stressors along with currently feeling depressed, helpless and hopeless which patient requires inpatient psychiatric stabilization at this time and for safety. Patient admitted under voluntary status, has capacity to consent for treatment. We will continue patient on CIWA protocol for alcohol withdrawal, we will start patient on sertraline 25 mg 1, 50 mg daily thereafter for depression. We will continue to monitor mood and behavior. Social work intervention for psychosocial stressors. Collateral formation pending. Discharge planning in progress. Landry Hinojosa MD Apr 21, 2018 11:41
[2018-04-21] MEDS ORDERED: SERTRALINE HCL 50 MG TAB PO ONE (15:45)
[2018-04-21] MEDS ORDERED: PILL SPLITTER OTHER PRN (15:45)
[2018-04-21 18:37] VITALS: BP 136/87; PULSE 100; RESP 18; TEMP 97.5; O2SAT 93
[2018-04-21] MEDS: REMOVE OLD NICODERM (NICOTINE) PATCH T-DERMAL SCH (21:00)
[2018-04-22] MEDS: chlordiazePOXIDE 25 MG CAP PO SCH ×3 (00:32→21:11)
[2018-04-22 04:37] VITALS: BP 111/66; PULSE 92; RESP 16; TEMP 98; O2SAT 97
[2018-04-22] MEDS: PANTOPRAZOLE SOD 40 MG DELAYED RELEASE TAB PO SCH (08:18)
[2018-04-22] MEDS: NICOTINE 21 MG/24 HR PATCH T-DERMAL SCH (08:18)
[2018-04-22] MEDS: SERTRALINE HCL 50 MG TAB PO SCH (08:18)
[2018-04-22] MEDS: MULTIVITAMIN TAB PO SCH (08:18)
[2018-04-22] MEDS: THIAMINE HCL 100 MG TAB PO SCH (08:18)
--- NOTE | 2018-04-22 17:24 | HHI.PYPN ---
Subjective Remarks Patient seen for follow, chart reviewed. Discussion nursing staff reported patient was noted to be somewhat labile last evening but compliant with treatment; CIWA scores have been low. Patient was found lying hospital bed noted B, cooperative. Patient states that she is feeling "better" and felt that taking the sertraline less evening had been helpful. Patient reports sleeping well, denies any difficulty with eating and drinking, denies any withdrawal symptoms at this time although patient compliant with Librium taper at this time. Extensive discussion about engaging rehabilitation program was reviewed with patient and how her substance abuse has been affecting him many aspects of her life which patient at this time is resistant to inpatient rehab program but open to outpatient rehabilitation program. Due to ongoing alcohol use for many years it was stressed to patient the need for inpatient rehabilitation program as a needed intervention to address her alcohol abuse. Patient somewhat perseverative on returning home, going back to work and taking care of her cats. Patient this time denies any SI, HI, AVH or delusions. Review of Systems Except as stated in HPI: all other systems reviewed are Neg Mental Status Examination Appearance: Disheveled (Slightly) Consciousness: Alert Orientation: Person, Place, Date/Time Motor Activity: Normal gait Speech: Other (Low volume) Language: Adequate Fund of Knowledge: Inadequate Attention and Concentration: Adequate Mood: Sad Affect: Sad, Other (Tearful) Thought Process & Associations: Linear Thought Content: Appropriate Hallucination Type: None Delusion Type: None Suicidal Ideation: Yes (Denies today) Suicidal Plan: No Suicidal Intention: No Homicidal Ideation: No Homicidal Plan: No Homicidal Intention: No Insight: Fair Judgment: Impulsive Results Vitals/IOs Vital Signs Date Time Temp Pulse Resp B/P (MAP) Pulse Ox O2 Delivery O2 Flow Rate FiO2 04/22/18 04:37 98.0 92 16 111/66 (81) 97 Intake and Output 04/22/18 04/22/18 04/23/18 08:00 16:00 00:00 Intake Total 600 ml Balance 600 ml Assessment & Plan Problem List: (1) Adjustment disorder with depressed mood ICD Codes: F43.21 - Adjustment disorder with depressed mood (2) Alcohol withdrawal ICD Codes: F10.239 - Alcohol withdrawal syndrome Status: Acute (3) Alcohol dependence, binge pattern ICD Codes: F10.20 - Alcohol dependence, episodic Status: Acute Assessment & Plan Patient with poor insight into the severity and impact of her alcohol use into her life. Patient continues with Librium taper, continues to monitor for signs and symptoms of withdrawal. Continue current treatment. Continue to monitor mood and behavior. Discharge planning in progress. Justification for Cont. Inpt. At risk for further decompensation if at lower level of care Landry Hinojosa MD Apr 22, 2018 17:24
[2018-04-22 18:47] VITALS: BP 102/67; PULSE 93; RESP 16; TEMP 98.9; O2SAT 96
[2018-04-22] MEDS: REMOVE OLD NICODERM (NICOTINE) PATCH T-DERMAL SCH (21:00)
[2018-04-23 06:00] VITALS: BP 103/65; PULSE 80; RESP 18; TEMP 97.7; O2SAT 94
[2018-04-23] MEDS: chlordiazePOXIDE 25 MG CAP PO SCH (06:08)
[2018-04-23] MEDS: MULTIVITAMIN TAB PO SCH (08:52)
[2018-04-23] MEDS: PANTOPRAZOLE SOD 40 MG DELAYED RELEASE TAB PO SCH (08:52)
[2018-04-23] MEDS: NICOTINE 21 MG/24 HR PATCH T-DERMAL SCH (08:52)
[2018-04-23] MEDS: THIAMINE HCL 100 MG TAB PO SCH (08:52)
[2018-04-23] MEDS: SERTRALINE HCL 50 MG TAB PO SCH (08:52)
--- NOTE | 2018-04-23 18:02 | HHI.PYPN ---
Subjective Remarks Patient seen for follow-up, chart reviewed. Discussion with nursing staff reported the patient denies any withdrawal symptoms was noted to be somewhat tearful less evening. Patient was found lying hospital bed noted B, cooperative. Patient states that she was a bit tearful less evening as she was taken about a friend of hers who she is close to will be moving away in about a couple of weeks. Patient states that otherwise she has been feeling better, denies any suicidal ideations, continues to feel motivated to engage in outpatient rehabilitation. She states that she is motivated to continue treatment and motivated to remain sober. Patient reports having been visited by her mother which went well and has planned to stay with her mother after being discharged from the hospital for support. Review of Systems Except as stated in HPI: all other systems reviewed are Neg Mental Status Examination Appearance: Appropriate Consciousness: Alert Orientation: Person, Place, Date/Time Motor Activity: Normal gait Speech: Other (Low volume) Language: Adequate Fund of Knowledge: Inadequate Attention and Concentration: Adequate Mood: Sad Affect: Sad Thought Process & Associations: Linear Thought Content: Appropriate Hallucination Type: None Delusion Type: None Suicidal Ideation: No Suicidal Plan: No Suicidal Intention: No Homicidal Ideation: No Homicidal Plan: No Homicidal Intention: No Insight: Fair Judgment: Impulsive Results Vitals/IOs Vital Signs Date Time Temp Pulse Resp B/P (MAP) Pulse Ox O2 Delivery O2 Flow Rate FiO2 04/23/18 06:00 97.7 80 18 103/65 (78) 94 Intake and Output 04/23/18 04/23/18 04/24/18 08:00 16:00 00:00 Intake Total 600 ml 360 ml Balance 600 ml 360 ml Assessment & Plan Problem List: (1) Adjustment disorder with depressed mood ICD Codes: F43.21 - Adjustment disorder with depressed mood (2) Alcohol withdrawal ICD Codes: F10.239 - Alcohol withdrawal syndrome Status: Acute (3) Alcohol dependence, binge pattern ICD Codes: F10.20 - Alcohol dependence, episodic Status: Acute Assessment & Plan Patient this time with noted improvement in mood but did report feeling upset yesterday to see her friend moving away soon. Patient continues denying suicide ideations, denying any withdrawal symptoms at this time. We will increase sertraline to 75 mg p.o. daily for depression, continue Librium taper. Continue to monitor mood and behavior, withdrawal precautions. Discharge planning in progress. Justification for Cont. Inpt. At risk of further decompensation a lower level of care. Landry Hinojosa MD Apr 23, 2018 18:02
[2018-04-23 18:27] VITALS: BP 112/71; PULSE 72; RESP 16; TEMP 97.9; O2SAT 95
[2018-04-23] MEDS ORDERED: chlordiazePOXIDE 25 MG CAP PO SCH (21:00)
[2018-04-23] MEDS: REMOVE OLD NICODERM (NICOTINE) PATCH T-DERMAL SCH (21:00)
[2018-04-24 06:03] VITALS: BP 85/48; PULSE 70; RESP 16; TEMP 97.6; O2SAT 96
[2018-04-24] MEDS ORDERED: PANT40TA3 PO (07:55)
[2018-04-24] MEDS ORDERED: VITA100T54 PO (07:55)
[2018-04-24] MEDS ORDERED: THERH PO (07:55)
[2018-04-24] MEDS ORDERED: ZOLO50TA PO (07:55)
--- NOTE | 2018-04-24 07:56 | HHI.DS ---
Psychiatry Discharge Summary Inpatient Psychiatric care?: Yes Advance Directive: Yes Mental Health AdvanceDirective: No Health Care Proxy: No Admission Admission Date Apr 20, 2018 at 19:55 Admission Diagnosis: (1) Adjustment disorder with depressed mood ICD Code: F43.21 - Adjustment disorder with depressed mood (2) Alcohol withdrawal ICD Code: F10.239 - Alcohol withdrawal syndrome (3) Alcohol dependence, binge pattern ICD Code: F10.20 - Alcohol dependence, episodic Brief History Patient is a 33-year-old woman, single, domiciled alone, with a past psychiatric history of depression, anxiety, no previous psychiatric admissions, no previous suicide attempt but does have a history of self-injurious behavior via cutting, as well as alcohol abuse recently which patient was brought in by mother due to concern for excessive drinking for the past week along with suicide ideations in the context of depressed mood, feeling helpless and hopeless, due to psychosocial stressors. Patient was admitted to the medical unit for alcohol withdrawal, seen by psychiatry consult service and patient is admitted voluntarily to the inpatient psychiatry for further evaluation and management. As per chart, patient was seen during psychiatric consultation with Dr. Mcfadden who had noted: Poorly cooperative, quite oppositional, difficult to engage in a conversation. She reports that she is "depressed and tired", in the setting and I worry about her reasons her emotions of depression. She says that she has been drinking alcohol to . Patient reports that she feels hopeless, helpless, with generally pessimism,, "I feel in a dark hole", states that she wishes to to drink, go to sleep and never wake up. She reports that she has been cutting herself in order to cope with anxiety and depression and relieve emotional pain. Patient is fully oriented x3. Patient was seen along with nurse and counselor lying hospital bed with poor eye contact, eyes closed mostly during interview and tearful at times. Patient states "sometimes I am not all there", reporting having been drinking daily since 04/04/18 but also reports history of frequent alcohol use since teenage years. Patient reports this past binge she had been drinking 1 bottle of liquor accompanied by decreased sleep, depressed mood, feeling helpless and hopeless, poor appetite, along with suicide ideations for the past couple of weeks. Patient reports that recently she had discord with friend, and treatments. Also feeling upset that her fiance had to move away for a job and having had discord with him as well. Patient recalls having had an back in August 2017 treatment. Which has been stressful and contributing to her current depression. Patient also upset feeling that "men leave me" and that she was trying to drink herself to recently. Prior to her admission she states that she felt her body was shutting down had called her mother who had brought to the hospital for further evaluation. Patient at this time denying SI, HI, AVH or delusions. Challenge with discussion about engaging in rehabilitation program after stabilization was reviewed which she agreed to. Family psychiatric history: White mother with depression?, No suicides in the family Past psychiatric history: Previous psychiatric diagnoses depression, anxiety, no previous psychiatric admissions, no previous suicide attempts, history of self-injurious behavior via cutting as per chart as patient denies during interview. Patient reports having had a therapist recently last seen in January but no outpatient mental health provider. Patient also reports having been on psychotropic medications but was unable to recall the name. Substance use history: Alcohol use daily since her 20s but had began drinking in her teenage years. Patient reports daily use of 1 bottle of wine usually. Patient also reports tobacco use 1 pack per day, and marijuana use once per week. Patient denies use of any other drugs although reports remote use of cocaine and LSD years ago. Patient reports having had previous detox and [facility] but no rehabilitation programs. Past medical history: Denies Allergies: NKDA Social history: Born and raised in [facility], domiciled alone, single, highest education is some college. She reports being employed, no background or asked to firearms. Tobacco Use In Past 30 Days: No Tobacco Past 30 Days Alcohol Use: 4 or More Times Per Week Hospital Course Patient is a 33-year-old woman, single, domiciled alone, with a past psychiatric history of depression, anxiety, no previous psychiatric admissions, no previous suicide attempt but does have a history of self-injurious behavior via cutting, as well as alcohol abuse recently which patient was brought in by mother due to concern for excessive drinking for the past week along with suicide ideations in the context of depressed mood, feeling helpless and hopeless, due to psychosocial stressors. Patient was admitted to the medical unit for alcohol withdrawal, seen by psychiatry consult service and patient is admitted voluntarily to the inpatient psychiatry for further evaluation and management. Patient was started on sertraline and titrated up to 75mg PO daily which he responded well to and tolerated without any adverse drug reactions. Patient was kept under [facility] protocol and managed with Librium taper and was not noted to have any withdrawal symptoms. Patient during the course of admission had been noted to have improvement in mood, no longer endorsing any suicide ideations, continued to deny any psychotic symptoms, homicidal ideation nor any perceptual disturbances. She responded well to treatment, was noted to be cooperative with staff, had god behavioral control with no evidence of any verbal or physical aggressive behavior toward others and was noted to have stable mood with treatment. Upon discharge patient reported feeling good denied any perceptual disturbances nor suicidal ideations or homicidal ideations. Patient agreed to continue treatment and follow up appointments for continuity of care through [facility]. Patient will be discharged directly to [facility] to establish care and to fill prescriptions. Treatment plan was explained to patient which she acknowledged. Counseling on importance of abstinence from substance use was reviewed and stressed with patient which she agreed. Supportive psychotherapy provided. Suicide and violence risk assessment on day of discharge both suggest lower imminent risk, and the patient's level of function is adequate for planned level of outpatient care. Patient has maximized benefit from this inpatient psychiatric hospital stay and to return to psychiatric emergency room for any concerning psychiatric symptoms. Patient agrees with plan. Results Blood Pressure 85 / 48 Vital Signs Date Time Temp Pulse Resp B/P (MAP) Pulse Ox O2 Delivery O2 Flow Rate FiO2 04/24/18 06:03 97.6 70 16 85/48 (60) 96 WNL Summary of Procedures None Pending results at discharge: No Medications # of Antipsychotic meds at D/C: 0 Approp Antipsych med options 1 - Minimum of three failed multiple trials of monotherapy. 2 - Documented plan to taper to monotherapy due to previous use of multiple meds OR cross-taper in progress at D/C. 3 - Documentation of augmentation of Clozapine. 4 - Justification other than those listed in allowable values 1-3, document here : Discharge Discharge Date: Apr 24, 2018 Discharge Diagnosis: (1) Adjustment disorder with depressed mood ICD Code: F43.21 - Adjustment disorder with depressed mood (2) Alcohol withdrawal ICD Code: F10.239 - Alcohol withdrawal syndrome Status: Acute (3) Alcohol dependence, binge pattern ICD Code: F10.20 - Alcohol dependence, episodic Status: Acute Pt Condition on Discharge: Stable Discharge Disposition: Discharge Home Discharge Instructions Diet Instructions: As Tolerated, No Restrictions Activities you can perform: Regular-No Restrictions Discharge Time > 30 minutes Mental Status Examination Appearance: Appropriate Consciousness: Alert Orientation: Person, Place, Date/Time Motor Activity: Normal gait Speech: Other (Low volume) Language: Adequate Fund of Knowledge: Inadequate Attention and Concentration: Adequate Mood: Appropriate Affect: Appropriate Thought Process & Associations: Intact, Goal directed, Linear Thought Content: Appropriate Hallucination Type: None Delusion Type: None Suicidal Ideation: No Suicidal Plan: No Suicidal Intention: No Homicidal Ideation: No Homicidal Plan: No Homicidal Intention: No Insight: Adequate Judgment: Adequate Discharge/Advance Care Plan Health Problems: (1) Adjustment disorder with depressed mood (2) Alcohol withdrawal (3) Alcohol dependence, binge pattern Goals to promote your health * To prevent worsening of your condition and complications * To maintain your health at the optimal level Directions to meet your goals Take your medications as prescribed Follow your dietary instruction Follow activity as directed Keep your appointments as scheduled Take your immunizations and boosters as scheduled If your symptoms worsen call your PCP, if no PCP go to Urgent Care Center or Emergency Room For 19/05 questions related to your inpatient stay or results of tests pending at discharge, please contact Dr. Landry Hinojosa at Smoking is Dangerous to Your Health. Avoid second hand smoking Landry Hinojosa MD Apr 24, 2018 07:56
[2018-04-24] MEDS: THIAMINE HCL 100 MG TAB PO SCH (09:00)
[2018-04-24] MEDS: NICOTINE 21 MG/24 HR PATCH T-DERMAL SCH (09:00)
[2018-04-24] MEDS: PANTOPRAZOLE SOD 40 MG DELAYED RELEASE TAB PO SCH (09:00)
[2018-04-24] MEDS ORDERED: SERTRALINE HCL 50 MG TAB PO SCH (09:00)
[2018-04-24] MEDS: MULTIVITAMIN TAB PO SCH (09:00)
[2018-04-24] MEDS ORDERED: chlordiazePOXIDE 25 MG CAP PO SCH (09:00)
== END 2018-04-24 11:00 | disposition home or self-care (01) | DRG 881 ==
LOC: H4EA 19:55
PROVIDERS: ADMIT Student in an Organized Health Care Education/Training Program; ATTEND Student in an Organized Health Care Education/Training Program
DX: F43.21 Adjustment disorder with depressed mood (principal); R45.851 Suicidal ideations; F10.239 Alcohol dependence with withdrawal, unspecified; F41.9 Anxiety disorder, unspecified; F17.210 Nicotine dependence, cigarettes, uncomplicated; F12.90 Cannabis use, unspecified, uncomplicated; Z91.5 Personal history of self-harm